=== PATIENT | female | born 1970 | race Caucasian/White ===

== ENCOUNTER → 2018-05-08 10:27 | Outpatient (CLI) | payer BC, SELFPAY ==
--- NOTE | 2018-05-08 10:44 | CT_ITS ---
STUDY: CT ABDOMEN AND PELVIS WITHOUT CONTRAST REASON FOR EXAM: Female, 47 years old. Bilateral flank pain. RADIATION DOSAGE (If Supplied By Facility): CTDIvol = ( 13.21 ) mGy, DLP = ( 709.76 ) mGycm TECHNIQUE: Transaxial images were obtained from the dome of the diaphragm to the symphysis pubis without oral contrast, and without intravenous contrast. Sagittal and coronal images were reconstructed. Individualized dose optimization techniques were used for this CT. COMPARISON: None. FINDINGS: The visualized lung bases are unremarkable. The visualized portions of the heart are within normal limits. Normal liver. There are surgical clips in the gallbladder fossa consistent with a prior cholecystectomy. Normal spleen. Normal pancreas. Normal bilateral adrenal glands. Normal right kidney. Normal left kidney. There is a small hiatal hernia. Normal small intestine. There are scattered colonic diverticula consistent with diverticulosis. The appendix is visualized and appears normal. Normal abdominal aorta. Normal inferior vena cava. Normal retroperitoneum. Normal urinary bladder. There is a 1.4 cm x 1.6 cm follicle in the left ovary. Normal abdominal wall. Normal osseous structures. CT/Abdomen/Pelvis without Cont IMPRESSION: Scattered sigmoid diverticula. Dominant follicle in the left ovary. Electronically Signed: Macario Sanchez MD at 11:14 EST Tel [phone], Service support ,
[2018-05-08 11:03] LABS: Albumin, Serum 3.7 g/dL (3.2-5.0); BUN 13 mg/dL (7-18); Calcium,Total 8.6 mg/dL (8.5-10.1); Chloride 105 mmol/L (98-107); Creatinine, Serum 0.72 mg/dL (0.55-1.02); EST Glomerular Filtration Rate 92 mL/min (>60); Est Glom Filt Rate - Afr Amer 112 mL/min (>60); Glucose 103 mg/dL (74-106); Phosphorus 3.1 mg/dL (2.5-4.9); Potassium 4.2 mmol/L (3.5-5.1); Sodium Level 141 mmol/L (136-145)
--- OUTSIDE RECORDS SUMMARY | 2018-07-03 06:35 | XMS RPT_ITS | Continuity of Care Document ---
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 Systolic 118 mm[Hg] Comments: Patient Position: Sitting; Cuff Location: Left Arm; Cuff Size: Standard BP Diastolic 80 mm[Hg] Comments: Patient Position: Sitting; Cuff Location: Left Arm; Cuff Size: Standard Weight 205.25 lb Height 64 in Body Mass Index Calculated 35.23 kg/m2 Body Surface Area Calculated 1.98 m2 :28 Pulse 89 /min Comments: Pattern: Regular Respiration Rate 16 /min Comments: Pattern: Unlabored O2 SAT 100 % Comments: Room air BP Systolic 130 mm[Hg] Comments: Patient Position: Sitting; Cuff Location: Left Arm; Cuff Size: Standard BP Diastolic 80 mm[Hg] Comments: Patient Position: Sitting; Cuff Location: Left Arm; Cuff Size: Standard Weight 207.25 lb Height 64 in Body Mass Index Calculated 35.57 kg/m2 Body Surface Area Calculated 1.99 m2 :37 Temperature 97.6 f Comments: Method: Temporal Pulse 87 /min Comments: Pattern: Regular Respiration Rate 18 /min Comments: Pattern: Unlabored O2 SAT 98 % Comments: Room air BP Systolic 124 mm[Hg] Comments: Patient Position: Sitting; Cuff Location: Left Arm; Cuff Size: Large BP Diastolic 74 mm[Hg] Comments: Patient Position: Sitting; Cuff Location: Left Arm; Cuff Size: Large Weight 208.25 lb Height 64 in Body Mass Index Calculated 35.75 kg/m2 Body Surface Area Calculated 1.99 m2 :50 Pulse 73 /min Comments: Pattern: Regular Respiration Rate 18 /min Comments: Pattern: Unlabored O2 SAT 97 % Comments: Room air BP Systolic 120 mm[Hg] Comments: Patient Position: Sitting; Cuff Location: Left Arm; Cuff Size: Large BP Diastolic 82 mm[Hg] Comments: Patient Position: Sitting; Cuff Location: Left Arm; Cuff Size: Large Weight 205.125 lb Height 64 in Body Mass Index Calculated 35.21 kg/m2 Body Surface Area Calculated 1.98 m2 :12 Pulse 82 /min Comments: Pattern: Regular Respiration Rate 18 /min Comments: Pattern: Unlabored O2 SAT 98 % Comments: Room air BP Systolic 122 mm[Hg] Comments: Patient Position: Sitting; Cuff Location: Left Arm; Cuff Size: Large BP Diastolic 80 mm[Hg] Comments: Patient Position: Sitting; Cuff Location: Left Arm; Cuff Size: Large Weight 193.375 lb Height 64 in Body Mass Index Calculated 33.19 kg/m2 Body Surface Area Calculated 1.93 m2 :25 Temperature 97.6 f Pulse 69 /min Comments: Pattern: Regular Respiration Rate 16 /min Comments: Pattern: Unlabored O2 SAT 98 % Comments: Room air BP Systolic 122 mm[Hg] Comments: Patient Position: Sitting; Cuff Location: Left Arm; Cuff Size: Standard BP Diastolic 80 mm[Hg] Comments: Patient Position: Sitting; Cuff Location: Left Arm; Cuff Size: Standard Weight 193.375 lb Height 64 in Body Mass Index Calculated 33.19 kg/m2 Body Surface Area Calculated 1.93 m2 :07 Pulse 96 /min Comments: Pattern: Regular Respiration Rate 18 /min Comments: Pattern: Unlabored O2 SAT 96 % Comments: Room air BP Systolic 142 mm[Hg] Comments: Patient Position: Sitting; Cuff Location: Left Arm; Cuff Size: Large BP Diastolic 90 mm[Hg] Comments: Patient Position: Sitting; Cuff Location: Left Arm; Cuff Size: Large Weight 193.375 lb Height 64 in Body Mass Index Calculated 33.19 kg/m2 Body Surface Area Calculated 1.93 m2 :34 Pulse 89 /min Comments: Pattern: Regular Respiration Rate 18 /min Comments: Pattern: Unlabored O2 SAT 98 % Comments: Room air BP Systolic 118 mm[Hg] Comments: Patient Position: Sitting; Cuff Location: Left Arm; Cuff Size: Large BP Diastolic 78 mm[Hg] Comments: Patient Position: Sitting; Cuff Location: Left Arm; Cuff Size: Large Weight 193.375 lb Height 64 in Body Mass Index Calculated 33.19 kg/m2 Body Surface Area Calculated 1.93 m2 :45 Respiration Rate 18 /min Comments: Pattern: Unlabored BP Systolic 124 mm[Hg] Comments: Patient Position: Sitting; Cuff Location: Left Arm; Cuff Size: Standard BP Diastolic 78 mm[Hg] Comments: Patient Position: Sitting; Cuff Location: Left Arm; Cuff Size: Standard Weight 189.375 lb Height 64 in Body Mass Index Calculated 32.51 kg/m2 Body Surface Area Calculated 1.91 m2 :31 Temperature 97.2 f Pulse 61 /min Comments: Pattern: Regular Respiration Rate 16 /min Comments: Pattern: Unlabored O2 SAT 98 % Comments: Room air BP Systolic 118 mm[Hg] Comments: Patient Position: Sitting; Cuff Location: Left Arm; Cuff Size: Standard BP Diastolic 78 mm[Hg] Comments: Patient Position: Sitting; Cuff Location: Left Arm; Cuff Size: Standard Weight 192.375 lb Height 64 in Body Mass Index Calculated 33.02 kg/m2 Body Surface Area Calculated 1.92 m2 :37 Temperature 97.6 f Comments: Method: Temporal Pulse 80 /min Comments: Pattern: Regular Respiration Rate 18 /min Comments: Pattern: Unlabored O2 SAT 97 % Comments: Room air BP Systolic 120 mm[Hg] Comments: Patient Position: Sitting; Cuff Location: Left Arm; Cuff Size: Large BP Diastolic 78 mm[Hg] Comments: Patient Position: Sitting; Cuff Location: Left Arm; Cuff Size: Large Weight 195 lb Height 64 in Body Mass Index Calculated 33.47 kg/m2 Body Surface Area Calculated 1.94 m2 :53 Temperature 97.6 f Comments: Method: Temporal Pulse 72 /min Comments: Pattern: Regular Respiration Rate 18 /min Comments: Pattern: Unlabored O2 SAT 97 % Comments: Room air BP Systolic 116 mm[Hg] Comments: Patient Position: Sitting; Cuff Location: Left Arm; Cuff Size: Large BP Diastolic 76 mm[Hg] Comments: Patient Position: Sitting; Cuff Location: Left Arm; Cuff Size: Large Weight 198 lb Height 64 in Body Mass Index Calculated 33.99 kg/m2 Body Surface Area Calculated 1.95 m2 :16 Temperature 97.7 f Comments: Method: Temporal Pulse 78 /min Comments: Pattern: Regular Respiration Rate 20 /min Comments: Pattern: Unlabored BP Systolic 120 mm[Hg] Comments: Patient Position: Sitting; Cuff Location: Left Arm; Cuff Size: Large BP Diastolic 82 mm[Hg] Comments: Patient Position: Sitting; Cuff Location: Left Arm; Cuff Size: Large Weight 194 lb Height 64 in Body Mass Index Calculated 33.3 kg/m2 Body Surface Area Calculated 1.93 m2 :51 Temperature 97.1 f Comments: Method: Temporal Pulse 74 /min Comments: Pattern: Regular Respiration Rate 20 /min Comments: Pattern: Unlabored BP Systolic 120 mm[Hg] Comments: Patient Position: Sitting; Cuff Location: Left Arm; Cuff Size: Standard BP Diastolic 78 mm[Hg] Comments: Patient Position: Sitting; Cuff Location: Left Arm; Cuff Size: Standard Weight 194 lb Height 64 in Body Mass Index Calculated 33.3 kg/m2 Body Surface Area Calculated 1.93 m2 [id number]-[id number]:00 Temperature 98 f Comments: Method: Tympanic Pulse 91 /min Comments: Pattern: Regular Respiration Rate 16 /min Comments: Pattern: Unlabored O2 SAT 98 % Comments: Room air BP Systolic 122 mm[Hg] Comments: Patient Position: Sitting; Cuff Location: Left Arm; Cuff Size: Standard BP Diastolic 78 mm[Hg] Comments: Patient Position: Sitting; Cuff Location: Left Arm; Cuff Size: Standard Weight 198.1875 lb Height 64 in Body Mass Index Calculated 34.02 kg/m2 Body Surface Area Calculated 1.95 m2 20-Uxp-426582:11 Pulse 80 /min Comments: Pattern: Regular Respiration Rate 20 /min Comments: Pattern: Unlabored O2 SAT 98 % Comments: Room air BP Systolic 128 mm[Hg] Comments: Patient Position: Sitting; Cuff Location: Left Arm; Cuff Size: Standard BP Diastolic 82 mm[Hg] Comments: Patient Position: Sitting; Cuff Location: Left Arm; Cuff Size: Standard Weight 202.1875 lb Height 64 in Body Mass Index Calculated 34.71 kg/m2 Body Surface Area Calculated 1.97 m2 :14 Temperature 97.9 f Comments: Method: Temporal Pulse 76 /min Comments: Pattern: Regular Respiration Rate 20 /min Comments: Pattern: Unlabored BP Systolic 120 mm[Hg] Comments: Patient Position: Sitting; Cuff Location: Left Arm; Cuff Size: Standard BP Diastolic 78 mm[Hg] Comments: Patient Position: Sitting; Cuff Location: Left Arm; Cuff Size: Standard Weight 199 lb Height 64 in Body Mass Index Calculated 34.16 kg/m2 Body Surface Area Calculated 1.95 m2 :12 Temperature 96.6 f Comments: Method: Temporal Pulse 76 /min Comments: Pattern: Regular Respiration Rate 16 /min Comments: Pattern: Unlabored O2 SAT 95 % Comments: Room air BP Systolic 122 mm[Hg] Comments: Patient Position: Sitting; Cuff Location: Left Arm; Cuff Size: Standard BP Diastolic 74 mm[Hg] Comments: Patient Position: Sitting; Cuff Location: Left Arm; Cuff Size: Standard Weight 213 lb Height 64 in Body Mass Index Calculated 36.56 kg/m2 Body Surface Area Calculated 2.01 m2 : Temperature 97.6 f Comments: Method: Oral Pulse 74 /min Comments: Pattern: Regular Respiration Rate 18 /min Comments: Pattern: Unlabored BP Systolic 120 mm[Hg] Comments: Patient Position: Sitting; Cuff Location: Left Arm; Cuff Size: Standard BP Diastolic 78 mm[Hg] Comments: Patient Position: Sitting; Cuff Location: Left Arm; Cuff Size: Standard Weight 213 lb Height 64 in Body Mass Index Calculated 36.56 kg/m2 Body Surface Area Calculated 2.01 m2 :27 Temperature 96.6 f Comments: Method: Temporal Pulse 76 /min Comments: Pattern: Regular Respiration Rate 16 /min Comments: Pattern: Unlabored BP Systolic 122 mm[Hg] Comments: Patient Position: Sitting; Cuff Location: Left Arm; Cuff Size: Standard BP Diastolic 78 mm[Hg] Comments: Patient Position: Sitting; Cuff Location: Left Arm; Cuff Size: Standard Weight 216 lb Height 64 in Body Mass Index Calculated 37.08 kg/m2 Body Surface Area Calculated 2.02 m2 : Temperature 97.8 f Comments: Method: Oral Pulse 70 /min Comments: Pattern: Regular Respiration Rate 18 /min Comments: Pattern: Unlabored BP Systolic 120 mm[Hg] Comments: Patient Position: Sitting; Cuff Location: Left Arm; Cuff Size: Standard BP Diastolic 78 mm[Hg] Comments: Patient Position: Sitting; Cuff Location: Left Arm; Cuff Size: Standard Weight 205 lb Height 64 in Body Mass Index Calculated 35.19 kg/m2 Body Surface Area Calculated 1.98 m2 :28 Pulse 76 /min Comments: Pattern: Regular Respiration Rate 18 /min Comments: Pattern: Unlabored BP Systolic 120 mm[Hg] Comments: Patient Position: Sitting; Cuff Location: Left Arm; Cuff Size: Large BP Diastolic 78 mm[Hg] Comments: Patient Position: Sitting; Cuff Location: Left Arm; Cuff Size: Large Weight 205 lb Height 64 in Body Mass Index Calculated 35.19 kg/m2 Body Surface Area Calculated 1.98 m2 :21 Temperature 98 f Comments: Method: Oral Pulse 70 /min Comments: Pattern: Regular Respiration Rate 20 /min Comments: Pattern: Unlabored BP Systolic 116 mm[Hg] Comments: Patient Position: Sitting; Cuff Location: Left Arm; Cuff Size: Standard BP Diastolic 76 mm[Hg] Comments: Patient Position: Sitting; Cuff Location: Left Arm; Cuff Size: Standard Weight 198 lb Height 64 in Body Mass Index Calculated 33.99 kg/m2 Body Surface Area Calculated 1.95 m2 :03 Temperature 98 f Comments: Method: Oral Pulse 68 /min Comments: Pattern: Regular Respiration Rate 18 /min Comments: Pattern: Unlabored BP Systolic 114 mm[Hg] Comments: Patient Position: Sitting; Cuff Location: Left Arm; Cuff Size: Large BP Diastolic 72 mm[Hg] Comments: Patient Position: Sitting; Cuff Location: Left Arm; Cuff Size: Large Weight 207 lb Height 64 in Body Mass Index Calculated 35.53 kg/m2 Body Surface Area Calculated 1.98 m2 :12 Temperature 97.6 f Comments: Method: Oral Pulse 68 /min Comments: Pattern: Regular Respiration Rate 18 /min Comments: Pattern: Unlabored BP Systolic 100 mm[Hg] Comments: Patient Position: Sitting; Cuff Location: Left Arm; Cuff Size: Standard BP Diastolic 70 mm[Hg] Comments: Patient Position: Sitting; Cuff Location: Left Arm; Cuff Size: Standard Weight 213 lb Height 64 in Body Mass Index Calculated 36.56 kg/m2 Body Surface Area Calculated 2.01 m2 :02 Temperature 97.6 f Comments: Method: Oral Pulse 72 /min Comments: Pattern: Regular Respiration Rate 16 /min Comments: Pattern: Unlabored BP Systolic 120 mm[Hg] Comments: Patient Position: Supine; Cuff Location: Left Arm; Cuff Size: Standard BP Diastolic 70 mm[Hg] Comments: Patient Position: Supine; Cuff Location: Left Arm; Cuff Size: Standard Weight 160.25 lb Height 64 in Body Mass Index Calculated 27.51 kg/m2 Body Surface Area Calculated 1.78 m2 :01 Temperature 97.5 f Comments: Method: Oral Pulse 70 /min Comments: Pattern: Regular Respiration Rate 16 /min Comments: Pattern: Unlabored BP Systolic 128 mm[Hg] Comments: Patient Position: Sitting; Cuff Location: Left Arm; Cuff Size: Standard BP Diastolic 70 mm[Hg] Comments: Patient Position: Sitting; Cuff Location: Left Arm; Cuff Size: Standard Weight 160.25 lb :46 Temperature 96.7 f Comments: Method: Oral Pulse 68 /min Comments: Pattern: Regular Respiration Rate 16 /min Comments: Pattern: Unlabored BP Systolic 120 mm[Hg] Comments: Patient Position: Sitting; Cuff Location: Left Arm; Cuff Size: Standard BP Diastolic 70 mm[Hg] Comments: Patient Position: Sitting; Cuff Location: Left Arm; Cuff Size: Standard Weight 160.25 lb :36 Pulse 66 /min Comments: Pattern: Regular Respiration Rate 16 /min Comments: Pattern: Unlabored BP Systolic 116 mm[Hg] Comments: Patient Position: Supine; Cuff Location: Left Arm; Cuff Size: Standard BP Diastolic 72 mm[Hg] Comments: Patient Position: Supine; Cuff Location: Left Arm; Cuff Size: Standard Weight 171.375 lb Height 63 in Body Mass Index Calculated 30.36 kg/m2 Body Surface Area Calculated 1.81 m2 Head Circumference 0.00 cm :16 Pulse 68 /min Comments: Pattern: Regular Respiration Rate 16 /min Comments: Pattern: Unlabored BP Systolic 118 mm[Hg] Comments: Patient Position: Sitting; Cuff Location: Left Arm; Cuff Size: Standard BP Diastolic 78 mm[Hg] Comments: Patient Position: Sitting; Cuff Location: Left Arm; Cuff Size: Standard Weight 177 lb Height 63 in Body Mass Index Calculated 31.35 kg/m2 Body Surface Area Calculated 1.84 m2 Head Circumference 0.00 cm :00 Temperature 98.2 f Comments: Method: Oral Pulse 70 /min Comments: Pattern: Regular Respiration Rate 16 /min Comments: Pattern: Unlabored BP Systolic 116 mm[Hg] Comments: Patient Position: Sitting; Cuff Location: Left Arm; Cuff Size: Standard BP Diastolic 72 mm[Hg] Comments: Patient Position: Sitting; Cuff Location: Left Arm; Cuff Size: Standard Weight 184 lb Height 63.75 in Body Mass Index Calculated 31.83 kg/m2 Body Surface Area Calculated 1.88 m2 Head Circumference 0.00 cm Results Date Description Value Details :58 Urinalysis, Office (37651) UA - LEUKOCYTE ESTERASE Moderate (Normal) UA - NITRITE Negative (Normal) URINE UROBILINGN ALEXANDER TIMED Normal mg/dL (Normal) UA - PROTEIN + mg/dL (Abnormal) UA - PH 6 (Abnormal) UA - BLOOD ++ (Abnormal) UA - SPECIFIC GRAVITY 1.030 (Abnormal) UA - KETONES Negative mg/dL (Normal) UA - BILIRUBIN Negative (Normal) UA - GLUCOSE Negative (Normal) 5-Xsu-803537:44 REVERSE TRIDOTHYRONINE Comments: PATIENT NOT FASTINGPERFORMED BY: [employer] [id number] BY: [address] [id number] ([id number]) Reverse T3, Serum 17.6 ng/dL (Normal) Range: 9.2-24.1 2-Das-328546:44 Anti-TPO Antibody (30501) Comments: PATIENT NOT FASTINGPERFORMED BY: [employer] [id number] BY: [address] [id number] Thyroid Peroxidase (TPO) Ab 13 {IU/mL} (Normal) Range: 0-34 4-Hfc-994403:44 TSH (93833) Comments: PATIENT NOT FASTINGPERFORMED BY: [employer] [id number] BY: [address] [id number] TSH 1.390 {uIU/mL} (Normal) Range: 0.450-4.500 1-Glf-845405:44 T4, FREE (THYROXINE) Comments: PATIENT NOT FASTINGPERFORMED BY: [employer] [id number] BY: [address] [id number] ([id number]) T4,Free(Direct) 1.02 ng/dL (Normal) Range: 0.82-1.77 1-Hzc-357964:44 T3, FREE (TRIDOTHYRONINE) Comments: PATIENT NOT FASTINGPERFORMED BY: [address] [id number] BY: [address] [id number] (08923) Triiodothyronine,Free,Serum 3.2 pg/mL (Normal) Range: 2.0-4.4 31-Cau-114668:13 Cortisol (46243) Comments: PATIENT NOT FASTINGPERFORMED BY: [address] [id number] Cortisol 10.4 ug/dL (Normal) Range: 2.3-19.4 Comments: Cortisol AM 6.2 - 19.4 Cortisol PM 2.3 - 11.9 27-Cko-188886:13 TSH (THYROID STIMULATING Comments: PATIENT NOT FASTINGPERFORMED BY: [address] [id number] Information: [id number] HORMONE) (81679) TSH 1.820 {uIU/mL} (Normal) Range: 0.450-4.500 28-Jiv-20352:21 Urinalysis, Office (49477) UA - LEUKOCYTE ESTERASE Negative (Normal) UA - NITRITE Negative (Normal) URINE UROBILINGN ALEXANDER TIMED 2 mg/dL (Normal) UA - PROTEIN Negative mg/dL (Normal) UA - PH 7.0 (Normal) UA - BLOOD Negative (Normal) UA - SPECIFIC GRAVITY 1.010 (Normal) UA - KETONES Negative mg/dL (Normal) UA - BILIRUBIN Negative (Normal) UA - GLUCOSE Negative (Normal) 13-Rww-199075:14 Throat Culture (26523) Comments: PATIENT NOT FASTINGPERFORMED BY: [address] [id number] Information: SRC:THRT ADD [id number] Result 1 RRF (Normal) Comments: Routine respiratory skylar Upper Respiratory Culture Final report (Normal) 41-Zqy-596969:14 Rapid Strep Test, Office (85027) Rapid Strep Test, Office Negative (Normal) 94-Ras-545431:38 Poliovirus Immune Status Comments: PATIENT NOT FASTINGPERFORMED BY: [address] [id number] BY: [facility] [facility] [id number] Poliovirus Type III >=1:8 (Normal) Comments: .This test was developed and its performance characteristics determinedby [employer]. It has not been cleared or approved by [facility] Food and Drug Administration. The FDA has deter mined that s uchclearance or approval is not necessary. This test is used for clinicalpurposes. It should not be regarded as investigational or research. Poliovirus Type II <1:8 (Normal) Comments: .This test was developed and its performance characteristics determinedby [employer]. It has not been cleared or approved by [facility] Food and Drug Administration. The FDA has deter mined that s uchclearance or approval is not necessary. This test is used for clinicalpurposes. It should not be regarded as investigational or research. Poliovirus Type I <1:8 (Normal) Comments: .This test was developed and its performance characteristics determinedby [employer]. It has not been cleared or approved by [facility] Food and Drug Administration. The FDA has deter mined that s uchclearance or approval is not necessary. This test is used for clinicalpurposes. It should not be regarded as investigational or research. 68-Yxb-411173:38 MUMPS ANTIBODY, IgG 44855 Comments: PATIENT NOT FASTINGPERFORMED BY: [facility] [employer] Buwjiiujoq4128 [facility] [id number] BY: [employer] Acvjws76[address] [facility] [id number] (21553) Mumps Abs, IgG 1.56 {index} (Abnormal) Range: 0.00-0.90 Comments: Negative <0.91 Equivocal 0.91 - 1.09 Positive >1.09 Presence of antibodie s to Mumps is presumptive evidence of immunity except when active infection is suspected. 7-Jwl-868260:59 THYROID Radiology Report See Note (Normal) Comments: PROCEDURE: THYROID ULTRASOUND REASON FOR EXAM: Female, 41 years old. Goiterous enlargement of thethyroid. TECHNIQUE: Ultrasound evaluation of the thyroid was performed withreal-time a nd static gr ay-scale imaging. COMPARISON: None. FINDINGS: RIGHT LOBE: The right lobe of the thyroid gland measures 4.7 cm x 1.7 cmby 1.3 cm. There is a homogeneous echotexture. There are nodemonstratedsolid, cystic or complex lesions. LEFT LOBE: The left lobe of the thyroid gland measures 4.6 cm x 1.4 cmby1.3 cm. There is a homogeneous echotexture. There is a 3.0 millimeterby3 mm x 2 mm cyst in the mid l eft lobe. ISTHMUS: The isthmus measures 2.0 mm. IMPRESSION:2 mm x 3 mm x 3 mm cyst in the left lobe of the thyroid. Signed:Macario Sanchez M.D.September 14, 2012 at 4:08:36 PM [phone] lly Signed GP/GP If you are the referring physician and would like to consult with theradiologist who provided this interpretation, please contact [place] at [phone]. If this radiol ogist is unavailable, youwill be directed to another radiologist to assist. If you are a patient with a question regarding this report, pleasecontactyour referring physician directly. Professional Inter pretation Provided By: [employer], Phone , These documents contain legally protected and confidential healthinformation intended only for the use of the individual or enti ty namedabove. If you are not the intended recipient, you are hereby notifiedthatany disclosure, copying, distribution, or other use of these documents isstrictly prohibited. If you have received this i nformation in error,pleasenotify the sender immediately and arrange for the return or destructionofthese documents. Dictated on 09/14/12 1340 by Clara Sanchez MDranscribed on 09/14/12 1636 by Alan AVINA IMPORTSign by Macario Sanchez MD on 09/14/12 1637 Sign by: Macario Sanchez MD FT3 3.5 pg/mL (Normal) Range: 2.18-3.98 :10 T4F 0.90 ng/dL Range: 0.76-1.46 :10 (Normal) TSH 1.41 {uIU/mL} Range: 0.358-3.74 :10 (Normal) :39 HIP, MIN 2 VIEWS Radiology Report See Note (Normal) Comments: PROCEDURE: X-RAY - LEFT HIP REASON FOR EXAM: Female, 40 years old. Joint pain. TECHNIQUE: Two views of the hip. COMPARISON: None. FINDINGS: Normal femoral head, neck, intertrochante tobi region a nd visualizedproximalfemur. Normal acetabulum. Normal hip joint. Normal visualized superior and inferior pubic rami and ischialtuberosities. IMPRESSION:Normal x-ray examination of the hip. To consult with a radiologist regarding this report, please call our [id number] line @ Dictated on 09/12/11 1233 by Gigi Gallagher DObed on 09/12/111436 by ITS IMPORTSign by Jovanny Gallagher DO on 09/12/11 1438 Sign by: Conrad Gallagher DO :39 HIP, MIN 2 VIEWS Radiology Report See Note (Normal) Comments: PROCEDURE: X-RAY - RIGHT HIP REASON FOR EXAM: Female, 40 years old. Joint pain TECHNIQUE: Two views of the hip. COMPARISON: None. FINDINGS: Normal femoral head, neck, intertrochante tobi region a nd visualizedproximalfemur. Normal acetabulum. Normal hip joint. Normal visualized superior and inferior pubic rami and ischialtuberosities. IMPRESSION:Normal x-ray examination of the hip. To consult with a radiologist regarding this report, please call our [id number] line @ Dictated on 09/12/11 1233 by Gigi Gallagher DObed on 09/12/11 1440 by ITS IMPORTSign by Jovanny Gallagher DO on 09/12/11 1441 Sign by: Conrad Gallagher DO CCP Antibodies 2 {units} (Normal) Comments: PATIENT NOT FASTINGPERFORMED BY: [facility] Re[address]qqa[address] [facility] [id number] BY: [facility] [id number] 2:15 IgG/IgA Range: 0-19 Comments: Negative <20 Weak positive 20 - 39 Moderate positive 40 - 59 Strong positive >59 6-Vtg-594057:15 RHEUMATOID FACTOR-QUANT Comments: PATIENT NOT FASTINGPERFORMED BY: [address] [id number] BY: [address] [id number] (47723) RA Latex Turbid. 7.4 {IU/mL} (Normal) Range: 0.0-13.9 2-Avd-310147:15 CALCIFIDIOL (98800) VIT D Comments: PATIENT NOT FASTINGPERFORMED BY: [place] [id number] [facility] [id number] BY: [address] [id number] Vitamin D, 25-Hydroxy 30.8 ng/mL (Normal) Range: 30.0-100.0 Comments: Vitamin D deficiency has been defined by the [place] ofMedicine and an Endocrine Society practice guideline as alevel of serum 25-OH vitamin D less than 20 ng/mL (1,2).The Endocrine Society went on to further define vitamin Dinsufficiency as a level between 21 and 29 ng/mL (2).1. IOM ([place] of [employer]). 2010. Dietary reference intakes for calcium and D. [place]: The National Academies Press.2. Nai MF, Jordan VELASCO, Pricila DONALD, et al. Evaluation, treatment, and prevention of vitamin D deficiency: an Endocrine Society clinical practice guideline. JCEM. 2010; 96(7):1911-30. 8-Thf-346991:15 Folate (36049) Comments: PATIENT NOT FASTINGPERFORMED BY: [address] [id number] BY: [address] [id number] Folate (Folic Acid), Serum >19.9 ng/mL (Normal) Comments: Indeterminate: 2.2 - 3.0 Deficient: <2.2 2-Wju-[id number]:15 VITAMIN B-12 (CYANOCOBALAMIN) Comments: PATIENT NOT FASTINGPERFORMED BY: LabSilverBack TechnologiesSouthern Ocean Medical CenterYnwweo5408 [facility] [id number] BY: [address] [id number] ([id number]) Vitamin B12 746 pg/mL (Normal) Range: 211-946 5-Xuj-476850:15 TSH ([id number]) Comments: PATIENT NOT FASTINGPERFORMED BY: [facility] [id number] [facility] [id number] BY: [address] [id number] TSH 1.850 {uIU/mL} (Normal) Range: 0.450-4.500 1-Cuj-511420:15 SED RATE ERYTHROCYTE Comments: PATIENT NOT FASTINGPERFORMED BY: LabSilverBack TechnologiesNorthern Navajo Medical CenterVrfnnb9362 [facility] [id number] BY: [address] [id number] ([id number]) Sedimentation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
--- OUTSIDE RECORDS SUMMARY | 2018-07-03 06:36 | XMS RPT_ITS | Continuity of Care Document ---
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 cook at home. Status: Active Plantar fasciitis (M72.2, 728.71) Comments: [...] Active Tooth infection (K04.7, 522.4) Status: Active Weight gain (R63.5, 783.1) Status: [...] DO, DO, Kathleen Start : 04-Aug-2017 Active Clindamycin HCl 300 MG Oral Capsule 1 (one) Capsule three times daily for 7 days Quantity: 21 {Capsule} Refills: 0 Ordered:08-Apr-2018 Sharon Buck Start : 08-Apr-2018 Active Diflucan 150 MG Oral Tablet 1 (one) Tablet today and can repeat in 2 days if needed for 0 days Quantity: 2 {Tablet} Refills: 0 Ordered:23-Jan-2018 Nikky CASTRO Neli Start : 23-Jan-2018 Active Diflucan 150 MG Oral Tablet 1 (one) Tablet one time dose for 1 days Quantity: 1 {Tablet} Refills: 3 Ordered:28-May-2017 Idalia Willis Start : 28-May-2017 Active Maxalt-TRAM OPERATOR 10 MG Oral Tablet Dispersible uad Tablet Disperse 1 at onset, then may repeat in 2 hours if not gone for 0 days Quantity: 36 {Tablet} Refills: 3 Ordered:05-Aug-2016 Andrzej Adorno DO, DO, Kathleen Start : 05-Aug-2016 Active Comments:Max (2) in 24 hours Maxalt-TRAM OPERATOR 10 MG Oral Tablet Dispersible uad Tablet [...] Quantity: 20 {Tablet} Refills: 0 Ordered:23-Jan-2018 Ricarda Sehr CNP Start : 23-Jan-2018 End : 02-Feb-2018 Inactive CYMBALTA, 30MG (Oral Capsule Delayed Release Particles) [address] Part daily for 0 days Quantity: 14 {Capsule_DR_Part} Refills: 0 Ordered:21-Dec-2012 BETTY Werner Start : 23-Nov-2012 End : 21-Dec-2012 Inactive DOXYCYCLINE HYCLATE, 100MG (Oral Tablet) 1 Tablet bid for 14 days Quantity: 28 {Tablet} Refills: 0 Ordered:11-Dec-2012 Mary Washington MD Start : 23-Nov-2012 End : 07-Dec-2012 Inactive Comments:called to [facility] ER 400 MG Oral Tablet Extended Release [...] days Quantity: 3 {Tablet} Refills: 0 Ordered:19-Nov-2016 Allison Vergara Start : 16-Oct-2016 End : 19-Nov-2016 Inactive [...] for 0 days Refills: 0 Ordered:30-Dec-2013 BETTY Werner Start : 02-Feb-2013 End : 30-Dec-2013 Inactive [...] Emilia Santana LPN End : 12-Sep-2011 Inactive SAVELLA TITRATION PACK, 12.5 & 25 & 50MG (Oral Miscellaneous) 1 Misc uad for 0 days Quantity: 1 {Package(s)} Refills: 0 Ordered:11-Sep-2012 Emilia Santana LPN Start : 18-Jun-2012 End : 11-Sep-2012 Inactive [...] : 12-Sep-2011 Discontinued Comments:This order discontinued per -Span. Allergies and Adverse Reactions Name Dates Details [...] Removal) Completed Comments: 1996 Tonsillectomy Completed Comments: 7/28/09 Date Value Details 13-May-2016 Spine Lumbar (Routine) Result: Comments: See Note; NOTES: [facility] Imaging Services [address] [place] [address] Montezdagomez 4d Spine Lumbar (Routine) MR#: [id number] Acct: [id number] Name: LACEY MACIAS p #: [id number] : 1970 F 45 From: Pierre Rebollar MD PCP: Kellen Adorno DO Status: REG CLI Study: Spine Lumbar (Routine) Date of Exam: 05/13/16 Exam# [id number] Ordering Dr: Ricarda Sher STUDY : MRI [...] MD at 21:54 EST , Service support [phone], CC: Ricarda hSer; Kellen Adorno DO Firefighter Marine: Signed 09-Apr-2016 Re-Evaluation - PT (1) Result: Comments: See Note; NOTES: [facility] [address] [place] [address] Fax REEVALUATION / MEDICARE RECERT IFICATION Ono 4d PHYSICAL THERAPY MR#: [id number] Acct: [id number] Name: LACEY MACIAS Rep #: [id number] : 1970 45 From: Soniya Fernandez PT, Cert. MDT Referring DrKang: Kellen Adorno DO Statu s: [...] Please do not hesitate to contact me a t [phone] by phone or if you have questions or concerns regarding this new plan of care! Sincerely, Soniya Fernandez <Electronically signed by Soniya Fernandez PT, Cert. MDT& amp;#62; 04/09/16 1006 CC: Kellen Adorno DO GINA Signed For Medicare only, by signing this I certify the plan of care. Physicians Signature Date 09-Feb-2016 Inital Evaluation (1) - PT Result: Comments: See Note; NOTES: [facility] [address] [place] [address] Fax [facility] [facility] EVALUATION MR#: [id number] Acct: [id number] Name: LACEY MACIAS Rep #: [id number] : 1970 45 From: Soniya Fernandez PT, Cert. 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 CURRENTLY NOT OFF WORK. Disability: NO. Present [...] treatment: CHIROPRACTOR SINCE ABOUT AGE 14 STAR MEAGANG WITH ADJUSTMENTS FOR PREVENTION. TREATMENT WITH CHIROPRACTOR OF THE YEARS FOR MIGRAIN DONALD'S. LAST CHIROPRACTIC VISIT WAS ABOUT 6 MONTHS AGO. USUALLY GOES ABOUT 3-4 TIMES A YEAR. 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 Coughing/sneezing/straining: POSITIVE. DIFFICULTY SWALLOWING - NEGATIVE. DIZZINESS [...] to be FAXED BACK to us at [phone] for Medicare purposes. Please let me know if there are questions or concerns regarding this plan of care. Physician Signature: Date: <Electronically signed by Elsy Fernandez PT, Cert. 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 Exercise History Comments: Light Status: Active Living Situation Comments: , Lives with spouse Status: Active No Drug Use Status: Active Non Smoker/No Tobacco Use Comments: never smoker Status: Active Vital Signs Date Test Result Details :52 Temperature 96.8 f Comments: Method: Temporal [...] kg/m2 Body Surface Area Calculated 1.93 m2 :00 Temperature 98 f Comments: Method: Tympanic Pulse [...] kg/m2 Body Surface Area Calculated 1.95 m2 :11 Pulse 80 /min Comments: Pattern: Regular Respiration [...] kg/m2 Body Surface Area Calculated 2.01 m2 :20 Temperature 97.6 f Comments: Method: Oral Pulse [...] kg/m2 Body Surface Area Calculated 2.02 m2 :01 Temperature 97.8 f Comments: Method: Oral Pulse [...] Calculated 1.84 m2 Head Circumference 0.00 cm 9-Nlf-229898:00 Temperature 98.2 f Comments: Method: Oral Pulse [...] 0.00 cm Results Date Description Value Details 2-Ocn-776808:44 REVERSE TRIDOTHYRONINE Comments: PATIENT NOT FASTINGPERFORMED BY: VoxFeedFormerly [facility] [id number] BY: Gilian TechnologiesO[place] [id number] ([id number]) Reverse T3, Serum 17.6 ng/dL (Normal) Range: 9.2-24.1 7-Kyy-477054:44 Anti-TPO Antibody (00233) Comments: PATIENT NOT FASTINGPERFORMED BY: I.[employer]ict[employer] [place] HealthYipitFormerly [facility], [facility] [id number] BY: [employer] [id number] Thyroid Peroxidase (TPO) Ab 13 {IU/mL} (Normal) Range: 0-34 6-Ymf-314581:44 TSH (16554) Comments: PATIENT NOT FASTINGPERFORMED BY: [employer]70 [facility] [id number] BY: [employer] [id number] TSH 1.390 {uIU/mL} (Normal) Range: 0.450-4.500 0-Vig-283494:44 T4, FREE (THYROXINE) Comments: PATIENT NOT FASTINGPERFORMED BY: [employer]70 [facility] [id number] BY: [place] [address]37 [facility] [id number] (87977) T4,Free(Direct) 1.02 ng/dL (Normal) Range: 0.82-1.77 5-Rbm-237607:44 T3, FREE (TRIDOTHYRONINE) Comments: PATIENT NOT FASTINGPERFORMED BY: [address] [id number] BY: [address] [id number] (50271) Triiodothyronine,Free,Serum 3.2 pg/mL (Normal) Range: 2.0-4.4 87-Ahl-340265:13 Cortisol (82167) Comments: PATIENT NOT FASTINGPERFORMED BY: [address] [id number] Cortisol 10.4 ug/dL (Normal) Range: 2.3-19.4 Comments: Cortisol AM 6.2 - 19.4 Cortisol PM 2.3 - 11.9 61-Uid-145867:13 TSH (THYROID STIMULATING Comments: PATIENT NOT FASTINGPERFORMED BY: [address] [id number] Information: [id number] HORMONE) (27278) TSH 1.820 {uIU/mL} (Normal) Range: 0.450-4.500 98-Uef-93578:21 Urinalysis, Office (21346) UA - LEUKOCYTE ESTERASE Negative (Normal) UA - NITRITE Negative (Normal) URINE UROBILINGN ALEXANDER TIMED 2 mg/dL (Normal) UA - PROTEIN Negative mg/dL (Normal) UA - PH 7.0 (Normal) UA - BLOOD Negative (Normal) UA - SPECIFIC GRAVITY 1.010 (Normal) UA - KETONES Negative mg/dL (Normal) UA - BILIRUBIN Negative (Normal) UA - GLUCOSE Negative (Normal) 69-Hbi-011184:14 Throat Culture (91158) Comments: PATIENT NOT FASTINGPERFORMED BY: [address] [id number] Information: SRC:THRT ADD [id number] Result 1 RRF (Normal) Comments: Routine respiratory skylar Upper Respiratory Culture Final report (Normal) 96-Rkj-948313:14 Rapid Strep Test, Office (12692) Rapid Strep Test, Office Negative (Normal) 09-Leu-835000:38 Poliovirus Immune Status Comments: PATIENT NOT FASTINGPERFORMED BY: [employer] [id number] BY: Gilian TechnologiesSouthern Ocean Medical CenterFzlpzr9924 [facility] [id number] Poliovirus Type III >=1:8 (Normal) Comments: .This test was developed and its performance characteristics determinedby [employer]. It has not been cleared or approved by [facility] Food and Drug Administration. The FDA has deter mined that s uchclearance or approval is not necessary. This test is used for clinicalpurposes. It should not be regarded as investigational or research. Poliovirus Type II <1:8 (Normal) Comments: .This test was developed and its performance characteristics determinedby [employer]. It has not been cleared or approved by [facility] Food and Drug Administration. The FDA has deter mined that s uchclearance or approval is not necessary. This test is used for clinicalpurposes. It should not be regarded as investigational or research. Poliovirus Type I <1:8 (Normal) Comments: .This test was developed and its performance characteristics determinedby [employer]. It has not been cleared or approved by [facility] Food and Drug Administration. The FDA has deter mined that s uchclearance or approval is not necessary. This test is used for clinicalpurposes. It should not be regarded as investigational or research. 40-Vcn-567005:38 MUMPS ANTIBODY, IgG 58466 Comments: PATIENT NOT FASTINGPERFORMED BY: [employer] [id number] BY: Gilian TechnologiesSouthern Ocean Medical CenterUemnvl6672 [facility] [id number] (67898) Mumps Abs, IgG 1.56 {index} (Abnormal) Range: 0.00-0.90 Comments: Negative <0.91 Equivocal 0.91 - 1.09 Positive >1.09 Presence of antibodie s to Mumps is presumptive evidence of immunity except when active infection is suspected. 4-Pbr-919906:59 THYROID Radiology Report See Note (Normal) Comments: [...] Sanchez M.D.September 14, 2012 at 4:08:36 PM [id number] lly Signed GP/GP If you are the referring physician and would like to consult with theradiologist who provided this interpretation, please contact [place] at [phone]. If this radiol ogist is unavailable, youwill be directed to another radiologist to assist. If you are a patient with a question regarding this report, pleasecontactyour referring physician directly. Professional Inter pretation Provided By: [employer], Phone , These documents contain legally protected [...] destructionofthese documents. Dictated on 09/14/12 1340 by Ivan Sanchez MDribed on 09/14/12 1636 by Alan AVINA IMPORTSign [...] radiologist regarding this report, please call our 32K1vqzzkse line @ Dictated on 09/12/11 1233 by Gigi Gallagher DObed on 09/12/11 1437 by ITS IMPORTSign by Jovanny Gallagher DO [...] radiologist regarding this report, please call our 87H7kluyqfn line @ Dictated on 09/12/11 1233 by Roman Gallagher DOribed on 09/12/11 1440 by ITS IMPORTSign by Jovanny Gallagher DO on 09/12/111440 Sign by: Conrad Gallagher DO CCP Antibodies 2 {units} (Normal) Comments: PATIENT NOT FASTINGPERFORMED BY: [employer] [facility] Ozsnkz2626 [facility] [id number] BY: [employer] [id number] 2:15 IgG/IgA Range: 0-19 Comments: Negative <20 Weak positive 20 - 39 Moderate positive 40 - 59 Strong positive >59 3-Jlp-834015:15 RHEUMATOID FACTOR-QUANT Comments: PATIENT NOT FASTINGPERFORMED BY: [employer] [facility] Hdrnxc4236 [facility] [id number] BY: [employer] [id number] (21172) RA Latex Turbid. 7.4 {IU/mL} (Normal) Range: 0.0-13.9 4-Wtj-157733:15 CALCIFIDIOL (37196) VIT D Comments: PATIENT NOT FASTINGPERFORMED BY: [employer] [facility] Sekxjo4220 [facility] [id number] BY: [employer] [id number] 25 Vitamin D, 25-Hydroxy 30.8 ng/mL (Normal) Range: 30.0-100.0 Comments: Vitamin D deficiency has been defined by the [place] ofMedicine and an Endocrine Society practice guideline as alevel of serum 25-OH vitamin D less than 20 ng/mL (1,2).The Endocrine Society went on to further define vitamin Dinsufficiency as a level between 21 and 29 ng/mL (2).1. IOM ([place] of Medicine). 2010. Dietary reference intakes for calcium and D. [place]: The National Academies Press.2. Nai TRINH, Jordan VELASCO, Pricila DONALD, et al. Evaluation, treatment, and prevention of vitamin D deficiency: an Endocrine Society clinical practice guideline. JCEM. 2010; 96(7):1911-30. 9-Ocd-419152:15 Folate (74408) Comments: PATIENT NOT FASTINGPERFORMED BY: CB [facility] Blynui7290 Silva RoadDublin [place] [id number] BY: [address] [id number] Folate (Folic Acid), Serum >19.9 ng/mL (Normal) Comments: Indeterminate: 2.2 - 3.0 Deficient: <2.2 7-Kau-627344:15 VITAMIN B-12 (CYANOCOBALAMIN) Comments: PATIENT NOT FASTINGPERFORMED BY: [facility] Ptaljl9750 Silva RoadDublin [place] [id number] BY: [address] [id number] (92048) Vitamin B12 746 pg/mL (Normal) Range: 211-946 8-Tvd-747968:15 TSH (91657) Comments: PATIENT NOT FASTINGPERFORMED BY: [facility] Pwqrdc3824 Silva RoadDublin [place] [id number] BY: [address] [id number] TSH 1.850 {uIU/mL} (Normal) Range: 0.450-4.500 5-Xqm-579004:15 SED RATE ERYTHROCYTE Comments: PATIENT NOT FASTINGPERFORMED BY: [facility] Dohyaw3095 Silva RoadDublin [place] [id number] BY: [address] [id number] (71753) Sedimentation Rate-Westergren 19 mm/h (Normal) Range: 0-32 8-Hiw-833685:15 METABOLIC PANEL, Comments: PATIENT NOT FASTINGPERFORMED BY: CB [facility] Nydthd8128 Silva RoadDublin [place] [id number] BY: [address] [id number] COMPREHENSIVE (48807) ALT (SGPT) 27 [iU]/L (Normal) Range: 0-40 [...] Glucose, Serum 87 mg/dL (Normal) Range: 65-99 5-Gcm-820923:15 C-REACTIVE PROTEIN (59229) Comments: PATIENT NOT FASTINGPERFORMED BY: [facility] Ibaygg9470 [facility] [id number] BY: BN [facility] Uermismbmd2261 [facility] [id number] C-Reactive Protein, Quant 14.1 mg/L (Abnormal) Range: 0.0-4.9 4-Mdk-818053:15 CBC (AUTO) (39480) Comments: PATIENT NOT FASTINGPERFORMED BY: Gilian TechnologiesColin [place] 2939370 [facility] [id number] BY: [employer] [id number] Platelets 367 {x10E3/uL} (Normal) Range: 140-415 RDW 13.8 % (Normal) Range: 11.7-15.0 MCHC 33.2 g/dL (Normal) Range: 32.0-36.0 MCH 29.1 pg (Normal) Range: 27.0-34.0 MCV 88 fL (Normal) Range: 80-98 Hematocrit 39.7 % (Normal) Range: 34.0-44.0 Hemoglobin 13.2 g/dL (Normal) Range: 11.5-15.0 RBC 4.53 {x10E6/uL} (Normal) Range: 3.80-5.10 WBC 6.8 {x10E3/uL} (Normal) Range: 4.0-10.5 5-Vvv-387798:15 PENNY (ANTINUCLEAR ANTIBODY) Comments: PATIENT NOT FASTINGPERFORMED BY: Gilian TechnologiesColin [place] 2939370 [facility] [id number] BY: [employer] [id number] (49847) PENNY Direct Negative (Normal) Plan of Care Name Dates Details Instructions Nonsmoker : Eprescribed prescriptions (G8553) Indication: Nonsmoker [...] Meridia Education Indication: Obesity, unspecified Planned Observations polio immune status antibodies 038371 (63478)Indication: School physical exam On: 96-Lka-406473:41 Request Anti-TPO Antibody (06433)Indication: Goiter On: :49 Request TSH (50622)Indication: Goiter On: 11-Sep-20129:49 Request T4, FREE (THYROXINE) (62413)Indication: Goiter On: :49 Request T3, FREE (TRIDOTHYRONINE) (33551)Indication: Goiter On: :49 Request CCP ANTIBODY (66546)Indication: Pain in unspecified joint On: 2-Zrs-746226:56 Request Planned Procedures Kenalog Injection, 10 mgm (J3301)By: On: 23-Jan-2018 Intent Ricarda Sher CNP Comments: 20mg Toradol Injection, 30 mg (J1885)By: On: 13-May-2016 Intent Kellen Adorno DO, DO, Comments: lot: [id number]-RIbem:03/09/17site/route: RGBhupinder/IMamt: 1mLVIS signed when applicableFAUSTINO Cooper MRI OF LUMBAR SPINE WITH AND WITHOUT On: 29-Apr-2016 Intent CONTRAST (57648)By: Ricarda Sher CNP Toradol Injection, 30 mg (J1885)By: On: 29-Apr-2016 Intent Ricarda Sher CNP Toradol Injection, 30 mg (J1885)By: On: 30-Dec-2013 Intent Mary Washington MD Eprescribed prescriptions (G8553)By: On: 21-Dec-2012 Intent Long MAKE UP ARTIST, Emilia L Ultrasound - ThyroidBy: Felix WATERS, On: 11-Sep-2012 Intent Mary Roe Eprescribed prescriptions (G8553)By: On: 11-Sep-2012 Intent Long MAKE UP ARTIST, Emilia L Toradol Injection, 30 mg (J1885)By: [...] SPECIFIED, 10 MG Ordered: 23-Jan-2018 Pending Ricarda Sher CNP Instructions Name Dates Details Nonsmoker : [...] Migraine : Patient Instructions Indication: Migraine Encounters Annotation/Addendum On: 08-Apr-2018 13:44 Encounter Diagnosis: Tooth [...] Nutrition: balanced diet and supplemental vitamins. The de dical issues the patient is following up [...] 14:52 [facility] Office Visit On: 1-Dec-2014 11:51 Encounter Diagnosis: Fibromyalgia (729.1), Obesity,unspecified (278.00) [...] with minor complaints (sore throat - tonsilectomy 2009) and is sleeping well. Current medication use: [...] (278.00) [facility] Payers [place]/Miguel Macias; harrison guarantor
--- OUTSIDE RECORDS SUMMARY | 2018-07-03 06:36 | XMS RPT_ITS | Continuity of Care Document ---
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 [employer]ILITY 10 MG Oral Tablet Dispersible uad Tablet Disperse 1 at onset, then may repeat in 2 hours if not gone for 0 days Quantity: 36 {Tablet} Refills: 3 Ordered:05-Aug-2016 Andrzej Adorno DO, DO, Kathleen Start : 05-Aug-2016 Active Comments:Max (2) in 24 hours Maxalt-MANAGER UTILITY 10 MG Oral Tablet Dispersible uad Tablet [...] 23-Nov-2012 End : 07-Dec-2012 Inactive Comments:called to [facility] ER 400 MG Oral Tablet Extended [...] Quantity: 1 {Cream} Refills: 0 Ordered:21-Dec-2012 BETTY eWrner Start : 23-Nov-2012 End : 21-Dec-2012 Inactive [...] Lumbar (Routine) Result: Comments: See Note; NOTES: [facility] Imaging Services [address] [place] [address] [place] 4d Spine Lumbar (Routine) MR#: [id number] Acct: [id number] Name: LACEY MACIAS p #: [id number] : 1970 F 45 From: Pierre Rebollar MD PCP: Kellen Adorno DO Status: REG CLI Study: Spine Lumbar (Routine) Date of Exam: 05/13/16 Exam# [id number] Ordering Dr: Ricarda Sher STUDY : MRI [...] MD at 21:54 EST , Service support [phone], CC: Ricarda Sher; Kellen Adorno DO Sofa Back Upholsterer: Signed 09-Apr-2016 Re-Evaluation - PT (1) Result: Comments: See Note; NOTES: [facility] [address] [place] [address] Fax REEVALUATION / MEDICARE RECERT IFICATION [place] 4d PHYSICAL THERAPY MR#: [id number] Acct: [id number] Name: LACEY MACIAS Rep #: [id number] : 1970 45 From: Soniya Fernandez PT, [...] not hesitate to contact me a t [phone] by phone or if you have questions or concerns regarding this new plan of care! Sincerely, Soniya Fernandez <Electronically signed by Soniya Fernandez PT, Cert. MDT& amp;#62; 04/09/16 1006 CC: Kellen Adorno DO GINA Signed For Medicare only, by signing this I certify the plan of care. Physicians Signature Date 09-Feb-2016 Inital Evaluation (1) - PT Result: Comments: See Note; NOTES: [facility] [address] [place] [address] Fax [facility] [place] EVALUATION MR#: [id number] Acct: [id number] Name: LACEY MACIAS Rep #: [id number] : 1970 45 From: Soniya Fernandez PT, Cert. 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 CURRENTLY NOT OFF WORK. Disability: NO. Present [...] AND HAS HAD MASSAGE THERAPY HERE AT [facility]. Coughing/sneezing/straining: POSITIVE. DIFFICULTY SWALLOWING - NEGATIVE. DIZZINESS [...] to be FAXED BACK to us at [phone] for Medicare purposes. 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 Exercise History Comments: Light [...] Calculated 1.84 m2 Head Circumference 0.00 cm 8-Qri-202330:00 Temperature 98.2 f Comments: Method: Oral Pulse [...] 0.00 cm Results Date Description Value Details 5-Qnq-815996:44 REVERSE TRIDOTHYRONINE Comments: PATIENT NOT FASTINGPERFORMED BY: [facility]At[facility] [id number] BY: [place] [id number] ([id number]) Reverse T3, Serum 17.6 ng/dL (Normal) Range: 9.2-24.1 5-Kvl-575585:44 Anti-TPO Antibody (51195) Comments: PATIENT NOT FASTINGPERFORMED BY: NurseBuddy [facility] Medical CenterPayBox Payment SolutionsAtrium Health [facility] [id number] BY: [employer] [id number] Thyroid Peroxidase (TPO) Ab 13 {IU/mL} (Normal) Range: 0-34 7-Lff-851078:44 TSH (15471) Comments: PATIENT NOT FASTINGPERFORMED BY: [employer]70 [facility] [id number] BY: Snap[employer] [id number] TSH 1.390 {uIU/mL} (Normal) Range: 0.450-4.500 1-Mly-209868:44 T4, FREE (THYROXINE) Comments: PATIENT NOT FASTINGPERFORMED BY: [employer] [facility] [id number] BY: [place] 591577 [facility] [id number] (89090) T4,Free(Direct) 1.02 ng/dL (Normal) Range: 0.82-1.77 1-Fto-364158:44 T3, FREE (TRIDOTHYRONINE) Comments: PATIENT NOT FASTINGPERFORMED BY: [address] [id number] BY: [address] [id number] (38792) Triiodothyronine,Free,Serum 3.2 pg/mL (Normal) Range: 2.0-4.4 63-Ewi-977396:13 Cortisol (14012) Comments: PATIENT NOT FASTINGPERFORMED BY: [address] [id number] Cortisol 10.4 ug/dL (Normal) Range: 2.3-19.4 Comments: Cortisol AM 6.2 - 19.4 Cortisol PM 2.3 - 11.9 85-Wkt-379719:13 TSH (THYROID STIMULATING Comments: PATIENT NOT FASTINGPERFORMED BY: [address] [id number] Information: [id number] HORMONE) (63437) TSH 1.820 {uIU/mL} (Normal) Range: 0.450-4.500 73-Xdu-46419:21 Urinalysis, Office (92954) UA - LEUKOCYTE ESTERASE Negative (Normal) UA - NITRITE Negative (Normal) URINE UROBILINGN ALEXANDER TIMED 2 mg/dL (Normal) UA - PROTEIN Negative mg/dL (Normal) UA - PH 7.0 (Normal) UA - BLOOD Negative (Normal) UA - SPECIFIC GRAVITY 1.010 (Normal) UA - KETONES Negative mg/dL (Normal) UA - BILIRUBIN Negative (Normal) UA - GLUCOSE Negative (Normal) 55-Iqy-557695:14 Throat Culture (27989) Comments: PATIENT NOT FASTINGPERFORMED BY: [address] [id number] Information: SRC:THRT ADD [id number] Result 1 RRF (Normal) Comments: Routine respiratory skylar Upper Respiratory Culture Final report (Normal) 47-Ozg-842692:14 Rapid Strep Test, Office (54835) Rapid Strep Test, Office Negative (Normal) 31-Jbx-304718:38 Poliovirus Immune Status Comments: PATIENT NOT FASTINGPERFORMED BY: Snapjoy[address] [id number] BY: SnapjoyAcuteCare Health SystemQnwhyg1961 [facility] [id number] Poliovirus Type III >=1:8 (Normal) Comments: .This test was developed and its performance characteristics determinedby [employer]. It has not been cleared or approved by [facility] Food and Drug Administration. The FDA has deter mined that s uchclearance or approval is not necessary. This test is used for clinicalpurposes. It should not be regarded as investigational or research. Poliovirus Type II <1:8 (Normal) Comments: .This test was developed and its performance characteristics determinedby [employer]. It has not been cleared or approved by [facility] Food and Drug Administration. The FDA has deter mined that s uchclearance or approval is not necessary. This test is used for clinicalpurposes. It should not be regarded as investigational or research. Poliovirus Type I <1:8 (Normal) Comments: .This test was developed and its performance characteristics determinedby [employer]. It has not been cleared or approved by [facility] Food and Drug Administration. The FDA has deter mined that s uchclearance or approval is not necessary. This test is used for clinicalpurposes. It should not be regarded as investigational or research. 77-Xsk-201292:38 MUMPS ANTIBODY, IgG 63517 Comments: PATIENT NOT FASTINGPERFORMED BY: Snapjoy[address] [id number] BY: SnapjoyAcuteCare Health SystemUiegis3606 [facility] [id number] (67781) Mumps Abs, IgG 1.56 {index} (Abnormal) Range: 0.00-0.90 Comments: Negative <0.91 Equivocal 0.91 - 1.09 Positive >1.09 Presence of antibodie s to Mumps is presumptive evidence of immunity except when active infection is suspected. 4-Pir-816259:59 THYROID Radiology Report See Note (Normal) Comments: [...] Sanchez M.D.September 14, 2012 at 4:08:36 PM [phone] lly Signed GP/GP If you are the referring physician and would like to consult with theradiologist who provided this interpretation, please contact [place] at [phone]. If this radiol ogist is unavailable, youwill be directed to another radiologist to assist. If you are a patient with a question regarding this report, pleasecontactyour referring physician directly. Professional Inter pretation Provided By: [employer], Phone , These documents contain legally protected [...] radiologist regarding this report, please call our 73O7pmdlodz line @ Dictated on 09/12/11 1233 by [...] radiologist regarding this report, please call our 96A0flxzpeg line @ Dictated on 09/12/11 1233 by Roman Gallagher DOribed on 09/12/11 1440 by ITS IMPORTSign by Jovanny Gallagher DO on 09/12/111440 Sign by: Conrad Gallagher DO CCP Antibodies 2 {units} (Normal) Comments: PATIENT NOT FASTINGPERFORMED BY: [facility] Zeojdf3503 [facility] [id number] BY: [employer] [id number] 2:15 IgG/IgA Range: 0-19 Comments: Negative <20 Weak positive 20 - 39 Moderate positive 40 - 59 Strong positive >59 6-Uez-389317:15 RHEUMATOID FACTOR-QUANT Comments: PATIENT NOT FASTINGPERFORMED BY: [facility] Jmsqjp1664 [facility] [id number] BY: [employer] [id number] (81498) RA Latex Turbid. 7.4 {IU/mL} (Normal) Range: 0.0-13.9 7-Ueb-527884:15 CALCIFIDIOL (94788) VIT D Comments: PATIENT NOT FASTINGPERFORMED BY: [facility] Qckoiw6089 [facility] [id number] BY: [employer] [id number] 25 Vitamin D, 25-Hydroxy 30.8 ng/mL (Normal) Range: 30.0-100.0 Comments: Vitamin D deficiency has been defined by the [place] ofMedicine and an Endocrine Society practice guideline as alevel of serum 25-OH vitamin D less than 20 ng/mL (1,2).The Endocrine Society went on to further define vitamin Dinsufficiency as a level between 21 and 29 ng/mL (2).1. IOM ([place] of Medicine). 2010. Dietary reference intakes for calcium and D. [place]: The National Academies Press.2. Nai TRINH, Jordan VELASCO, Pricila DONALD, et al. Evaluation, treatment, and prevention of vitamin D deficiency: an Endocrine Society clinical practice guideline. JCEM. 2010; 96(7):1911-30. 4-Hgf-590276:15 Folate (62896) Comments: PATIENT NOT FASTINGPERFORMED BY: [facility] Sfiane6187 Silva RoadDublin [place] [id number] BY: [address] [id number] Folate (Folic Acid), Serum >19.9 ng/mL (Normal) Comments: Indeterminate: 2.2 - 3.0 Deficient: <2.2 4-Ody-469847:15 VITAMIN B-12 (CYANOCOBALAMIN) Comments: PATIENT NOT FASTINGPERFORMED BY: [facility] Whygtr8909 Silva RoadDublin [place] [id number] BY: [address] [id number] (00652) Vitamin B12 746 pg/mL (Normal) Range: 211-946 0-Fgn-940378:15 TSH (68498) Comments: PATIENT NOT FASTINGPERFORMED BY: [facility] Jzjxnw1057 Silva RoadDublin [place] [id number] BY: [address] [id number] TSH 1.850 {uIU/mL} (Normal) Range: 0.450-4.500 1-Yft-159695:15 SED RATE ERYTHROCYTE Comments: PATIENT NOT FASTINGPERFORMED BY: [facility] Hgbabz5518 Silav RoadDublin [place] [id number] BY: [address] [id number] (91798) Sedimentation Rate-Westergren 19 mm/h (Normal) Range: 0-32 1-Hrz-630892:15 METABOLIC PANEL, Comments: PATIENT NOT FASTINGPERFORMED BY: [facility] Iwgstj5192 Silva RoadDublin [place] [id number] BY: [address] [id number] COMPREHENSIVE (96291) ALT (SGPT) 27 [iU]/L (Normal) Range: 0-40 [...] Glucose, Serum 87 mg/dL (Normal) Range: 65-99 0-Odc-749756:15 C-REACTIVE PROTEIN (41412) Comments: PATIENT NOT FASTINGPERFORMED BY: [facility] Hsxqzf8776 [facility] [id number] BY: [facility] Nmiifawrrx2100 [facility] [id number] C-Reactive Protein, Quant 14.1 mg/L (Abnormal) Range: 0.0-4.9 4-Fxh-848906:15 CBC (AUTO) (29200) Comments: PATIENT NOT FASTINGPERFORMED BY: [place]joy[place] 3882870 [facility] [id number] BY: [employer] [id number] Platelets 367 {x10E3/uL} (Normal) Range: 140-415 RDW 13.8 % (Normal) Range: 11.7-15.0 MCHC 33.2 g/dL (Normal) Range: 32.0-36.0 MCH 29.1 pg (Normal) Range: 27.0-34.0 MCV 88 fL (Normal) Range: 80-98 Hematocrit 39.7 % (Normal) Range: 34.0-44.0 Hemoglobin 13.2 g/dL (Normal) Range: 11.5-15.0 RBC 4.53 {x10E6/uL} (Normal) Range: 3.80-5.10 WBC 6.8 {x10E3/uL} (Normal) Range: 4.0-10.5 4-Wyh-878758:15 PENNY (ANTINUCLEAR ANTIBODY) Comments: PATIENT NOT FASTINGPERFORMED BY: [place] 3882870 [facility] [id number] BY: Snapjoy[address] [id number] (03878) PENNY Direct Negative (Normal) Plan of Care [...] unspecified Planned Observations polio immune status antibodies [id number] (34565)Indication: School physical exam On: 54-Tbf-423606:41 Request Anti-TPO Antibody (41522)Indication: Goiter On: :49 Request TSH (74404)Indication: Goiter On: 11-Sep-20129:49 Request T4, FREE (THYROXINE) (73779)Indication: Goiter On: :49 Request T3, FREE (TRIDOTHYRONINE) (21121)Indication: Goiter On: :49 Request CCP ANTIBODY (63875)Indication: Pain in unspecified joint On: 2-Nzw-969717:56 Request Planned Procedures Kenalog Injection, 10 mgm (J3301)By: On: 23-Jan-2018 Intent Ricarda Sher CNP Comments: 20mg Toradol Injection, 30 mg (J1885)By: On: 13-May-2016 Intent Kellen Adorno DO, DO, Comments: lot: [id number]:03/09/17site/route: RGBhupinder/IMamt: 1mLVIS signed when applicableFAUSTINO Cooper MRI OF LUMBAR SPINE WITH AND WITHOUT On: 29-Apr-2016 Intent CONTRAST (67214)By: Ricarda Sher CNP Toradol Injection, 30 mg (J1885)By: On: 29-Apr-2016 Intent Ricarda Sher CNP Toradol Injection, 30 mg (J1885)By: On: 30-Dec-2013 Intent Mary Washington MD Eprescribed prescriptions (G8553)By: On: 21-Dec-2012 Intent Long CHIEF JUVENILE PROBATION OFFICER, Emilia L Ultrasound - ThyroidBy: Felix WATERS, On: 11-Sep-2012 Intent Mary Roe Eprescribed prescriptions (G8553)By: On: 11-Sep-2012 Intent Long CHIEF JUVENILE PROBATION OFFICER, Emilia L Toradol Injection, 30 mg (J1885)By: [...] Nutrition: balanced diet and supplemental vitamins. The ky dical issues the patient is following up [...]
--- OUTSIDE RECORDS SUMMARY | 2018-07-03 06:37 | XMS RPT_ITS ---
:1970 Author Organization OHIP Care Team Providers Name Role Phone CLAYTON WHATLEY Referring Unavailable YANETH WHATLEYNA B Referring Unavailable ELVIA FAROOQ Referring Unavailable ELVIA FAROOQ Admitting Unavailable ELVIA FAROOQ Attending Unavailable ELVIA FAROOQ Referring Unavailable OSEASELVIA MCCOY Referring Unavailable CiesaRicarda Attending Unavailable SanjuanaesRicarda terry Referring Unavailable Faustino, Kellen Primary Care Unavailable SATCLAYTON RAMIREZ BINDIGANAVALE Referring Unavailable SATCLAYTON RAMIREZ BINDIGANAVALE Referring Unavailable ELVIA FAROOQ ZOHRAB Referring Unavailable OSEASELVIA MCCOY ZOHRAB Referring Unavailable OSEASELVIA MCCOY ZOHRAB Admitting Unavailable ELVIA FAROOQ ZOHRAB Attending Unavailable ELVIA FAROOQ ZOHRAB Referring Unavailable Adan Ocampo Attending Unavailable Mary Washington Primary Care Unavailable Adan Ocampo Admitting Unavailable Adan Ocampo Attending Unavailable Mary Washington Primary Care Unavailable Adan Ocampo Attending Unavailable Mary Washington Primary Care Unavailable Adan Ocampo Admitting Unavailable PROBLEMS PROBLEMS DATE TYPE CONDITION / CODE ATTENDING STATUS SOURCE 05/08/2018 Unknown R10.9 - Unspecified Ricarda Sher Active [place] abdominal pain / Community R10.9(ICD-10) Hospital Repository 05/08/2018 Unknown N39.0 - Urinary CiRicarda anderson Active [place] tract infection, Community site not specified Hospital / N39.0(ICD-10) Repository 05/08/2018 Unknown R31.9 - Hematuria, Ricarda Sher Active [place] unspecified / Community R31.9(ICD-10) Hospital Repository 11/11/2017 Active Spondylosis without OSEAS, Active [place] myelopathy or [facility] Other radiculopathy, [place] lumbar region / Repository M47.816(ICD-10) 11/05/2017 Active Encounter for other NA Active [facility] preprocedural [facility] Other examination / [place] Z01.818(ICD-10) Repository 10/01/2017 Admitting Unknown / NA Active [facility] diagnosis [facility]K(Unknown) [facility] System Repository 10/01/2017 Active Radiculopathy, NA Active [place] lumbosacral region Clinic Other / M54.17(ICD-10) [place] Repository PROCEDURES PROCEDURES No Procedure Records FoundRESULTS RESULTS ABDOMEN/PELVIS WITHOUT Observed: 05/08/2018 Status: F Source: [place] CONT 10:45 AM [facility] REPOSITORY [facility] Imaging Services [address] [place] [address] Abdomen/Pelvis without Cont MR#: [id number] Acct: [id number] Name: LACEY MACIAS Rep #: [id number] : 1970 F 47 From: Macario Sanchez MD PCP: Kellen Harmon DO Status: REG CLI Study: Abdomen/Pelvis without Cont Date of Exam: 05/08/18 Exam# [id number] Ordering Dr: Ricarda Sher 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 Bilateral flank pain. RADIATION DOSAGE (If Supplied By Facility): CTDIvol = ( 13.21 ) mGy, DLP = ( 709.76 ) mGycm TECHNIQUE: Transaxial images were obtained from the dome of the diaphragm to the symphysis pubis without oral contrast, and without intravenous contrast. Sagittal and coronal images were reconstructed. Individualized dose optimization techniques were used for this CT. COMPARISON: None. FINDINGS: The visualized lung bases are unremarkable. The visualized portions of the heart are within normal limits. Normal liver. There are surgical clips in the gallbladder fossa consistent with a prior cholecystectomy. Normal spleen. Normal pancreas. Normal bilateral adrenal glands. Normal right kidney. Normal left kidney. There is a small hiatal hernia. Normal small intestine. There are scattered colonic diverticula consistent with diverticulosis. The appendix is visualized and appears normal. Normal abdominal aorta. Normal inferior vena cava. Normal retroperitoneum. Normal urinary bladder. There is a 1.4 cm x 1.6 cm follicle in the left ovary. Normal abdominal wall. Normal osseous structures. CT/Abdomen/Pelvis without Cont IMPRESSION: Scattered sigmoid diverticula. Dominant follicle in the left ovary. Electronically Signed: Macario Sanchez MD at 11:14 EST Tel [phone], Service support , CC: Ricarda Sher NP; Kellen Harmon DO Peer Tutor: Signed RENAL PROFILE Collected: 05/08/2018 Status: F Source: [place] 10:33 AM [facility] REPOSITORY TYPE CODE TESTS RESULT OUT OF RANGE REFERENCE UNITS LAB L501.0100 74-106 mg/dL Normal GLU 103 Result Comment: Fasting Glucose result from 100 to 125 mg/dL suggests IMPAIRED HOMEOSTASIS per A.D.A. criteria. Please note revised GLUCOSE reference range effective 2017. LAB L501.1000 7-18 mg/dL Normal BUN 13 LAB L501.1100 0.55-1.02 mg/dL Normal CREAT,SERUM 0.72 Result Comment: The validity of the calculated GFR AND GFRAA in patients over 70 years has not been determined. Clinical correlation is essential. LAB L501.1110 >60 mL/min Normal EST GFR 92 Result Comment: Non- GFR Calc LAB L501.1115 >60 mL/min Normal EST GFR - AA 112 Result Comment: GFR Calc LAB L501.1300 10-20 RATIO Normal BUN/CRE 18.0 LAB L501.1800 3.2-5.0 g/dL Normal ALB 3.7 LAB L501.2200 8.5-10.1 mg/dL CA Normal 8.6 LAB L501.2300 2.5-4.9 mg/dL Normal PHOS 3.1 LAB L501.5300 136-145 mmol/L NA Normal 141 LAB L501.5600 3.5-5.1 mmol/L K Normal 4.2 LAB L501.5900 98-107 mmol/L CL Normal 105 LAB L501.6100 21.0-32.0 mmol/L Normal CO2 29.0 Performed By: #### L500.3600 #### [facility] [address] [place], [address] Observed: 05/08/2018 Status: F Source: [place] CULTURE, URINE 10:33 AM [facility] REPOSITORY Urine Culture ORGANISM 1: Presumptive E. coli [place] Count >100,000 Presumptive E. coli: REACTION Amoxacillin/Clavulanic Acid $ <=2 S Ampicillin $ <=2 S Ampicillin/Sulbactam $ <=2 S Cefazolin $ <=4 S Cefepime $ <=1 S Ceftriaxone $ <=1 S Ciprofloxacin $ <=0.25 S ESBL - Ertapenim $$$ <=0.5 S Gentamicin $ <=1 S Imipenem *NF <=0.25 S Levofloxacin $ <=0.12 S Nitrofurantoin $ <=16 S Piperacillin/Tazobactam $$ <=4 S Tobramycin $ <=1 S Trimethoprim/Sulfametho $ <=20 S (NF) indicates non-formulary drug at [facility]. Approval by Infectious Disease Specialist required before non-formulary drugs may be ordered and/or dispensed. Performed By: #### M100.0650 #### [facility] [address] [place], [address] PLAN OF CARE Observed: 11/13/2017 Status: COMPLETED Source: [place] 11:25 AM [facility] OTHER CAMPUS REPOSITORY HNO ID: [id number] Author: Ellie Rodriguez (Heavy Duty Custodian) Service: (none) Author Type: (none) Type: Plan of Care Filed: 11/13/2017 11:26 AM Note Text: Pharmacy Discharge Medication Service: This patient has elected to receive their discharge prescriptions through the [facility] Bedside Prescription Delivery program. The prescriptions are currently being processed. PATIENT HAS ELECTED TO RN X RAY THEIR PRESCRIPTIONS IN OUTPATIENT PHARMACY, PLEASE BE AWARE THAT PHARMACY CLOSES AT 530 PM.Please contact me with any questions or updates to the patient's discharge medications. Ellie Rodriguez ([employer]) DCT Contact Info: [phone] PLAN OF CARE Observed: 11/13/2017 Status: COMPLETED Source: [place] 11:23 AM [facility] REPOSITORY HNO ID: [id number] Author: Ellie Rodriguez ([employer]) Service: (none) Author Type: (none) Type: Plan of Care Filed: 11/13/2017 11:25 AM Note Text: ASSISTANT NEWS DIRECTOR BEDSIDE DELIVERY SURVEY 1. Patient to use [facility] Bedside Delivery - YES 2. If fax, patient would like us to fax prescriptions to Pharmacy of choice a. Pharmacy: b. Location: c. Phone: 3. Insurance card on file - YES 4. Credit card for payment - YES Peroccet 5/325 mg Flexeril 10 mg Contact Ellie at [phone] with questions prior to discharge PLAN OF CARE Observed: 11/13/2017 Status: COMPLETED Source: [place] 11:16 AM [facility] REPOSITORY HNO ID: [id number] Author: Jeni Cardenas (Pharmacist) Service: Pharmacy Author Type: Pharmacist Type: Plan of Care Filed: 11/13/2017 11:17 AM Note Text: PHARMACY DISCHARGE MEDICATION COUNSELING PATIENT NAME: Lacey Macias DATE of SERVICE: 11/13/17 TIME of SERVICE: 1100 The patient accepted medication counseling for the discharge medications below. The patient was given the opportunity to ask questions regarding medication indication, interactions and side effects. Discharge Medications: Percocet and Flexeril Patient verbalizes understanding of counseling. Signature: JENI CARDENAS PHARMACIST Date: November 13, 2017 Time: 11:16 AM CNDS Observed: 11/13/2017 Status: COMPLETED Source: [place] 8:27 AM [facility] REPOSITORY HNO ID: [id number] Author: Elvia Farooq Service: Neurosurgery Author Type: Physician Type: Discharge Summaries Filed: 11/13/2017 8:28 AM Note Text: DISCHARGE SUMMARY PATIENT NAME: Lacey Macias ADMISSION DATE: 11/11/2017 DISCHARGE DATE: 11/13/2017 ATTENDING PHYSICIAN: Elvia Farooq REASON FOR HOSPITALIZATION: lumbar laminectomy DIAGNOSIS: Active Problems: Lumbar spondylosis Obesity, Class II, BMI 35-39.9 Resolved Problems: * No resolved hospital problems. * Ruled Out OPERATIONS DURING HOSPITALIZATION: lumbar laminectomy PROCEDURES DURING HOSPITALIZATION: No procedures performed HOSPITAL COURSE: Patient had an uncomplicated hospital course LABS AND PROCEDURES PENDING AT DISCHARGE: No pending results. CONSULTING TEAMS DURING HOSPITALIZATION: None PATIENT CONDITION AT DISCHARGE: Good DISCHARGE DISPOSITION: Home/Self Care INFORMATION PROVIDED TO PATIENT: (To pull info documented from the DC Instruct Orderset Complete O/S First): DISCHARGE MEDICATION: Current Discharge Medication List CONTINUE these medications which have NOT CHANGED acetaminophen (TYLENOL) 325 mg cap Take by mouth as needed. buPROPion SR (ZYBAN SR; WELLBUTRIN SR) 150 mg Take 150 mg by mouth once daily. spironolactone (ALDACTONE) 25 mg Take 25 mg by mouth once daily. FUTURE APPOINTMENTS: Follow Up with Dr. Farooq in 10-14 days TIME OF CARE (Use first blank if not applicable): TIME OF CARE: Discharge Management: I personally spent less than 30 minutes involved in the discharge management of this patient. SIGNATURE: Elvia Farooq MD PATIENT NAME: Lacey Macias DATE: November 13, 2017 TIME: 8:27 AM PAGER/CONTACT #: [phone] CASE MGT INIT Observed: 11/12/2017 Status: COMPLETED Source: [facility] 11:35 AM CLINIC OTHER CAMPUS REPOSITORY HNO ID: [id number] Author: Ellie KimRnMarilee Basurto RN Service: Care Management Author Type: Registered Nurse Type: Care Mgt Initial Assessment Filed: 11/12/2017 11:44 AM Note Text: CARE MANAGEMENT: ASSESSMENT AND DISCHARGE PLAN SERVICE DATE: 11/12/2017 SERVICE TIME: .now PRIMARY CARE PHYSICIAN: Kellen Harmon DO ADMISSION STATUS: Inpatient Needs Prior to Discharge: Discharge Prescriptions 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 No Advance Directive: Health Literacy: 1. How often do you need to have someone help you when you read instructions, pamphlets, or other written material from your doctor or pharmacy? Never - 1 2. How confident are you filling out medical forms by yourself? Extremely - 1 If Patient scores > 3 on either question, the following interventions were put into place: Patient did not score > 3 FUNCTIONAL AND COGNITIVE/BEHAVIORAL PRIOR TO ADMISSION: Baseline Mental Status: Alert AND Oriented, Person, Place , Time and Situation Functional Status: Independent Does Patient Currently Receive Any Community Services or Home Care? None Equipment Prior to Admission: None Has the Patient Been in a Shelter Facility in the Past 30 days? 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 No Caregiver Needed Patient's transition needs and plan for meeting these needs: There are no needs at this time- will continue to follow and reassess for transitional care needs Does the patient have an acute stroke diagnosis, or has the patient had a stroke during this admission? No Medication Adherence: I am convinced of the importance of my prescription medication: Agree completely - 0 I worry that my prescription medication will do more harm than good to me Disagree mostly - 0 I feel financially burdened by my [id number] expenses for my prescription medication: Disagree mostly -0 Patient is categorized as low risk < 2 Are you interested in bedside delivery of your medications? No Food Concerns: In the Last Month, Have You had Trouble Getting Food? No trouble getting food During the Last Month, Have You Worried Whether Your Food Would Run Out Before You Had Enough Money to Buy More? No Is the Patient Psychosocially Complex? 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 PT- recs home w/ family assist prn. Family available at home to assist patient as needed. Family to transport home at discharge. No needs for d/c at this time, cm to continue to follow. THERAPY NT Observed: 11/12/2017 Status: COMPLETED Source: [place] 10:04 AM CLINIC OTHER CAMPUS REPOSITORY HNO ID: [id number] Author: Edgar (Pt) Smita Service: Physical Therapy Author Type: Physical Therapist Type: Therapy (PT/OT/Speech/Resp) Filed: 11/12/2017 10:09 AM Note Text: Physical Therapy Evaluation SERVICE DATE: 11/12/2017 SERVICE TIME: 914 to 944 ROOM: [place] [address] Recommended Discharge Disposition: Home Anticipated Discharge Needs: Physical Assist at Home Physical Assist at Home for: Cleaning;Laundry;Meals;Shopping;Transportation PT Recommendations to Nursing: Ambulate without device;To bathroom;In halls;OOB for Meals;With assist of 1 person (stand by assist) PT 6 Clicks Score: 21 Precautions/Activity Restrictions: Lines/Tubes/Drains;Sternal ASSESSMENT : Patient presents with POD #1 DECOMPRESSION LAMINECTOMY 4TH ADD'L LUMBAR SEGMENT; a medically stable condition with limited functional impairments which minimally impact safe mobility. The patient will require skilled therapy for PT problems that may include balance, gait safety with or without an assitive device and home safety education. Patient Disposition at Start of Session: Supine in Bed Patient Disposition at End of Session: OOB in Chair;Call [place] in Reach Tolerated Full Session Physical Therapy Problem List: Education Deficit;Pain;Impaired Self Care;Decreased Range Of Motion;Decreased Strength;Functional Mobility Impairment;Balance Impaired Patient /Caregiver Goals: Go Home Goals for Plan of Care: Transfer supine to/from sit with: Independent Ambulate with: Independent Distance: 250 Goal: Independent with spinal precautions Rehab Potential: Good PLAN: Treatment Frequency (times per week): 7 (4-7) Current admission Treatment Interventions: Education;Self Care / Home Management;Energy Conservation Training;Strengthening;Functional Mobility Training;Balance Training;Pain Management Plan of Care developed with: Patient TREATMENT INTERVENTIONS: Therapy Diagnosis: Reduced mobility-other;Muscle Weakness (generalized);Unsteadiness on feet;Difficulty walking-musculoskeletal Interventions Provided: Evaluation;Therapeutic Activity (03154) $ Evaluation-Low (04941) Billed Units: 1 unit Therapeutic Activity (70345) Treatment Minutes: 15 1 unit Skilled Intervention(s): Educated patient on spinal precautions, role of PT in hospital and plan of care, progressing ambulation in hospital and after discharge, log-roll technique, issued Home Instruction handout reinforcing education, mobility safety, energy conservation. Patient able to recall/recite spinal precautions at end of session. Total Timed Code Treatment Minutes: 15 Total Treatment Time (minutes): 30 FUNCTIONAL G CODE: PT 6 Clicks Score: 21 (11/12/17914) Mobility: Walking and Moving Around Current Status (G8978): CJ (11/12/17914) Mobility: Walking and Moving Around Goal Status (G8979): CH (11/12/17914) Based on clinical assessment and the score on the 6 Clicks Functional Assessment Tool, the G code and corresponding severity modifiers are documented above. SUBJECTIVE: Current Hospital Course: Chart reviewed; POD #1 DECOMPRESSION LAMINECTOMY 4TH ADD'L LUMBAR SEGMENT, lab values and vital signs not significant to PT session today. Reason for Physical Therapy Consult : lumbar decompression/laminectomy Active Hospital Problems Diagnosis - Lumbar spondylosis PAST MEDICAL HISTORY Diagnosis Date - Anxiety - Fibromyalgia - Lumbar spinal stenosis PAST SURGICAL HISTORY Procedure Laterality Date - CHOLECYSTECTOMY HX 1996 - PAST SURGICAL HISTORY OF AGE 18 WISDOM TEETH PULLED - TONSILLECTOMY HX AGER 32 Patient Report: Identification verified x2, patient agreeable to therapy. Has not been out of bed yet. 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[facility]) OBJECTIVE: CURRENT FUNCTIONAL STATUS: Current Functional Mobility Assist Level Additional Information Rolling Supine to Sit Contact Guard Assistance Sit to Supine Scooting Stand By Assistance Sit to Stand Stand By Assistance Stand to Sit Bed to Chair Toilet/Commode Supervision Gait Stand By Assistance Gait Device: None Gait Distance (feet): 220 Stairs Stand By Assistance Stairs Device: Rail Number of Stairs: 4 Curb Step Car Transfer General Gait Deviations: Arm swing decreased;Non-functional gait speed Please see discipline specific clinical documentation flowsheet for complete details for this therapy evaluation/treatment. SIGNATURE: Edgar Ordoñez, PT PATIENT NAME: Lacey Macias DATE: November 12, 2017 TIME: 10:04 AM PAGER/CONTACT #: [phone] PROGRESS Observed: 11/12/2017 Status: COMPLETED Source: [place] 9:15 AM [facility] REPOSITORY HNO ID: [id number] Author: Escobar Cagle Service: Neurosurgery Author Type: Physician Type: Progress Notes Filed: 11/12/2017 9:16 AM Note Text: Neurosurgery : Back pain postop. Some R leg pain. Moving extremities normally. Has small amount of hemovac drainage. Escobar Cagle MD NURSING PROG Observed: 11/11/2017 Status: COMPLETED Source: [place] 7:34 PM [facility] REPOSITORY HNO ID: [id number] Author: Kia (Rn) CAMELIA Hernadez Service: Nursing Author Type: Registered Nurse Type: Nursing Progress Note Filed: 11/11/2017 7:34 PM Note Text: Sent text paged to neurosurg regarding complaints of nausea. ANES POST Observed: 11/11/2017 Status: COMPLETED Source: [place] 6:45 PM [facility] REPOSITORY HNO ID: [id number] Author: Asher Monae Service: Anesthesiology Author Type: Physician Type: Anesthesia PostOp Filed: 11/11/2017 6:45 PM Note Text: POST ANESTHESIA EVALUATION NOTE SERVICE DATE: 11/11/2017 SERVICE TIME: 6:45 PM : 1970 Vitals: 11/11/17 1108 11/11/17 1435 11/11/17 1520 11/11/17 1725 Temp: 36.5 ?C (97.7 ?F) 36.1 ?C (97 ?F) 36.2 ?C (97.2 ?F) 36.5 ?C (97.7 ?F) 11/11/17 1600 11/11/17 1615 11/11/17 16311/11/17 1725 BP: 107/78 108/55 106/62 103/68 11/11/17 1600 11/11/17 1615 11/11/17 1633 11/11/17 1725 Pulse: 76 72 78 80 11/11/17 1600 11/11/17 1615 11/11/17 1633 06/05/18 1725 Resp: 14 12 15 18 06/05/18 1600 11/11/17 1615 11/11/17 1633 11/11/17 1725 SpO2: 94% 91% 94% 93% Validated Vital Signs: Yes POST ANES STATUS: No apparent anesthetic complications. The patient is appropriately hydrated with stable respiratory and cardiovascular status. Patient has safe and adequate airway control. The patient has appropriate pain relief and no significant post operative nausea or vomiting. The patient has achieved baseline mental status. Further assessment by Anesthesia Service: None Other Remarks: SIGNATURE: Asher Monae MD PATIENT NAME: Lacey Macias DATE: November 11, 2017 TIME: 6:45 PM PAGER/CONTACT #: [phone] BRIEF OP NOT Observed: 11/11/2017 Status: COMPLETED Source: [place] 2:17 PM [facility] REPOSITORY HNO ID: [id number] Author: Elvia Farooq Service: Neurosurgery Author Type: Physician Type: Brief Op Note Filed: 11/11/2017 2:18 PM Note Text: BRIEF OPERATIVE / PROCEDURE NOTE LOG ID: [id number] SURGERY/PROCEDURE DATE: 11/11/2017 INCISION/PROCEDURE START TIME: 1:21 PM INCISION CLOSE/PROCEDURE END TIME: 2:14 PM SURGEON(S)/PROCEDURALIST(S) AND CHEMICAL TANK WORKER(S): Surgeon(s) and Role: * Elvia Farooq - Primary Meat Department Manager: Patrick Howell SA SURGERY/PROCEDURE(S): Lumbar laminectomy L4, L5 bilateral foraminotomies, L4, L5 ANESTHESIA: General FINDINGS: Severe lateral recess stenosis ESTIMATED BLOOD LOSS: 100 mls SPECIMENS: None COMPLICATIONS: None PRE-OP/PRE-PROCEDURE DIAGNOSIS: Degenerative spinal lumbar stenosis POST-OP/POST-PROCEDURE DIAGNOSIS: Degenerative lumbar spinal stenosis [M48.061] SIGNATURE: Elvia Farooq MD PATIENT NAME: Lacey Macias DATE: November 11, 2017 TIME: 2:17 PM PAGER/CONTACT #: SPINE SINGLE VIEW Observed: 11/11/2017 Status: F Source: [facility] 2:00 PM HEALTH SYSTEM REPOSITORY Performed at [facility] APPROVED BY: Usman Castaneda MD EXAM TITLE: INTRAOPERATIVE CROSSFIRE LATERAL VIEW OF THE LUMBAR SPINE. DATE: 11/11/2017 12:45 COMPARISON: 10/01/2017 CLINICAL INDICATION/HISTORY: The patient has spinal stenosis. The patient is undergoing posterior laminectomy L4-5. TECHNIQUE: Up to one hour of intraoperative fluoroscopic time was provided. The amount of intraoperative fluoroscopic time utilized is not indicated on the requisition. A single crossfire lateral vie w of the lower lumbar spine is presented. FINDINGS: There are soft tissue retractors posterior to the L4 and L5 vertebral bodies. There is a metallic probe positioned approximately 2.3 cm posterior to the level of L4-5. IMPRESSION: Intraoperative localization film as described above. ANES PREOP Observed: 11/11/2017 Status: COMPLETED Source: [place] 10:58 AM [facility] OTHER CAMPUS REPOSITORY HNO ID: [id number] Author: Asher Núñez Service: Anesthesiology Author Type: Physician Type: Anesthesia PreOp Filed: 11/11/2017 11:05 AM Note Text: ANESTHESIOLOGY DAY OF SURGERY NOTE SERVICE DATE: 11/11/2017 SERVICE TIME: 10:58 AM : 1970 Procedure(s) (LRB): LUMBAR 4-5 LAMINECTOMY (N/A) DECOMPRESSION LAMINECTOMY 4TH ADD'L LUMBAR SEGMENT (N/A) Surgeon(s): Elvia Farooq Estimated body mass index is 36.05 kg/m? as calculated from the following: Height as of this encounter: 162.6 cm (5' 4). Weight as of this encounter: 95.3 kg (210 lb). Most recent hematocrit and potassium results: Hematocrit 39.8 11/05/2017 Potassium 4.2 01/28/2016 ANES DOS/PREOP NOTE: Vitals: @MVITALS@ There is no problem list on file for this patient. PAST MEDICAL HISTORY Diagnosis Date - Anxiety - Fibromyalgia - Lumbar spinal stenosis PAST SURGICAL HISTORY Procedure Laterality Date - CHOLECYSTECTOMY HX 1996 - PAST SURGICAL HISTORY OF AGE 18 WISDOM TEETH PULLED - TONSILLECTOMY HX AGER 32 FAMILY HISTORY Problem Relation Age of Onset - Cancer Maternal Grandmother - Diabetes Maternal Grandmother - Cancer Paternal Grandfather Social History: Social History Substance Use Topics - Smoking status: Never Smoker - Smokeless tobacco: Never Used - Alcohol use Yes Comment: SOCIALLY No current facility-administered medications on file prior to encounter. No current outpatient prescriptions on file prior to encounter. No current facility-administered medications for this encounter. Allergies: ALLERGIES Allergen Reactions - Penicillins Swelling - Tramadol Vomiting DOS EXAM: Adequate NPO status: Yes Anesthetic risks, benefits, alternatives, personnel and consent discussed: Yes Patient agrees to proceed: Yes Previous Anesthesia: No history of adverse event. Airway Assessment: MP 2; Neck ROM: Full ROM without neurologic symptoms; Airway Evaluation: No significant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
--- OUTSIDE RECORDS SUMMARY | 2018-07-03 06:37 | XMS RPT_ITS | Continuity of Care Document ---
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 Fibromyalgia (M79.7, 729.1) Comments: stable [...] at L4-L5 level (M48.061, 724.02) Status: Active Weight gain (R63.5, 783.1) Status: [...] Quantity: 2 {Tablet} Refills: 0 Ordered:23-Jan-2018 Nikky GLORIARicarda Start : 23-Jan-2018 Active Diflucan 150 MG Oral Tablet 1 (one) Tablet one time dose for 1 days Quantity: 1 {Tablet} Refills: 3 Ordered:28-May-2017 Idalia Willis Start : 28-May-2017 Active Maxalt-ART PSYCHOTHERAPIST OR THERAPIST 10 MG Oral Tablet Dispersible uad Tablet Disperse 1 at onset, then may repeat in 2 hours if not gone for 0 days Quantity: 36 {Tablet} Refills: 3 Ordered:05-Aug-2016 Andrzej Adorno DO, DO, Kathleen Start : 05-Aug-2016 Active Comments:Max (2) in 24 hours Maxalt-ART PSYCHOTHERAPIST OR THERAPIST 10 MG Oral Tablet Dispersible uad Tablet [...] days Quantity: 20 {Tablet} Refills: 0 Ordered:23-Jan-2018 Rciarda Sher CNP Start : 23-Jan-2018 End : [...] End : 07-Dec-2012 Inactive Comments:called to kiki rosas Etodolac ER 400 MG Oral Tablet Extended Release [...] Santana LPN L End : 12-Sep-2011 Inactive Medrol 4 MG [...] days Quantity: 28 {Tablet} Refills: 1 Ordered:12-Sep-2016 Faustino VARGAS Idaniadominic Kellen Start : 12-Sep-2016 End : 12-Sep-2016 Inactive Topamax 50 MG Oral Tablet 1 Tablet 1/2 at night for 5 days then 1/2 bid for 5 days then 1.2 nikita and 1 at night for 5 days then 1 bid for 0 days Quantity: 180 {Tablet} Refills: 3 Ordered:12-Sep-2016 Faustino VARGASAndrzej DO Kellen Start : 12-Sep-2016 End : 12-Sep-2016 Inactive [...] : 12-Sep-2011 Discontinued Comments:This order discontinued per -. Allergies and Adverse Reactions Name Dates Details [...] Lumbar (Routine) Result: Comments: See Note; NOTES: [facility] Imaging Services [address] [place] [address] [place] [address] [place] 4d Spine Lumbar (Routine) MR#: [id number] Acct: [id number] Name: LACEY MACIAS p #: [id number] : 1970 F 45 From: Pierre Rebollar MD PCP: Kellen Adorno DO Status: REG CLI Study: Spine Lumbar (Routine) Date of Exam: 05/13/16 Exam# [id number] Ordering Dr: Ricarda Sher STUDY : MRI [...] MD at 21:54 EST , Service support [phone], CC: Ricarda Sher; Kellen Adorno DO Accredited Pharmacy Technician: Signed 09-Apr-2016 Re-Evaluation - PT (1) Result: Comments: See Note; NOTES: [facility] Physical [facility] [address] [facility] [facility]. [address] [place] [address] Fax REEVALUATION / MEDICARE RECERT IFICATION [place] 4d PHYSICAL THERAPY MR#: [id number] Acct: [id number] Name: LACEY MACIAS Rep #: [id number] : 1970 45 From: Soniya Fernandez PT, Cert. MDT Referring Dr.: Kellen Adorno DO Statu s: REG RCR [...] not hesitate to contact me harrison t [phone] by phone or if you have questions or concerns regarding this new plan of care! Sincerely, Soniya Fernandez <Electronically signed by Soniya Fernandez PT, Cert. MDT& amp;#62; 04/09/16 1006 CC: Kellen Adorno DO GINA Signed For Medicare only, by signing this I certify the plan of care. Physicians Signature Date 09-Feb-2016 Inital Evaluation (1) - PT Result: Comments: See Note; NOTES: [facility] [address] [place] [address]. [address] [place] [address] Fax REHABILITATION SERVICES INITIA L EVALUATION MR#: [id number] Acct: [id number] Name: LACEY MACIAS Rep #: [id number] : 1970 45 From: Soniya Fernandez PT, Cert. 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 CURRENTLY NOT OFF WORK. Disability: NO. Present [...] treatment: CHIROPRACTOR SINCE ABOUT AGE 14 STAR TING WITH ADJUSTMENTS FOR PREVENTION. TREATMENT WITH CHIROPRACTOR OF THE YEARS FOR MIGRAIN DONALD'S. LAST CHIROPRACTIC VISIT WAS ABOUT 6 MONTHS AGO. USUALLY GOES ABOUT 3-4 TIMES A YEAR. AUNT IS A [employer] ERAPIST AND HAS HAD MASSAGE THERAPY HERE AT [facility]. Coughing/sneezing/straining: POSITIVE. DIFFICULTY SWALLOWING - NEGATIVE. DIZZINESS [...] to be FAXED BACK to us at [phone] for Medicare purposes. 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 [id number] BY: [address] [id number] (32747) Reverse T3, Serum 17.6 ng/dL (Normal) Range: 9.2-24.1 :44 Anti-TPO Antibody (94596) Comments: PATIENT NOT FASTINGPERFORMED BY: [facility] [id number] BY: [address] [id number] Thyroid Peroxidase (TPO) Ab 13 {IU/mL} (Normal) Range: 0-34 :44 TSH (77709) Comments: PATIENT NOT FASTINGPERFORMED BY: [facility] [id number] BY: [address] [id number] TSH 1.390 {uIU/mL} (Normal) Range: 0.450-4.500 :44 T4, FREE (THYROXINE) Comments: PATIENT NOT FASTINGPERFORMED BY: [facility] [id number] BY: [address] [id number] (39714) T4,Free(Direct) 1.02 ng/dL (Normal) Range: 0.82-1.77 0-Rhk-841153:44 T3, FREE (TRIDOTHYRONINE) Comments: PATIENT NOT FASTINGPERFORMED BY: [facility] [facility] [id number] BY: [address] [id number] (25710) Triiodothyronine,Free,Serum 3.2 pg/mL (Normal) Range: 2.0-4.4 34-Dts-698955:13 Cortisol (73836) Comments: PATIENT NOT FASTINGPERFORMED BY: [place] [address] [facility] [id number] Cortisol 10.4 ug/dL (Normal) Range: 2.3-19.4 Comments: Cortisol AM 6.2 - 19.4 Cortisol PM 2.3 - 11.9 70-Nip-776873:13 TSH (THYROID STIMULATING Comments: PATIENT NOT FASTINGPERFORMED BY: [address] [id number] Information: [id number] HORMONE) (73928) TSH 1.820 {uIU/mL} (Normal) Range: 0.450-4.500 34-Ggf-88886:21 Urinalysis, Office (29304) UA - LEUKOCYTE ESTERASE Negative (Normal) UA - NITRITE Negative (Normal) URINE UROBILINGN ALEXANDER TIMED 2 mg/dL (Normal) UA - PROTEIN Negative mg/dL (Normal) UA - PH 7.0 (Normal) UA - BLOOD Negative (Normal) UA - SPECIFIC GRAVITY 1.010 (Normal) UA - KETONES Negative mg/dL (Normal) UA - BILIRUBIN Negative (Normal) UA - GLUCOSE Negative (Normal) 63-Xzv-935518:14 Throat Culture (08471) Comments: PATIENT NOT FASTINGPERFORMED BY: [address] [id number] Information: SRC:THRT ADD [id number] Result 1 RRF (Normal) Comments: Routine respiratory skylar Upper Respiratory Culture Final report (Normal) 05-Tbc-706598:14 Rapid Strep Test, Office (21184) Rapid Strep Test, Office Negative (Normal) 09-Zje-886059:38 Poliovirus Immune Status Comments: PATIENT NOT FASTINGPERFORMED BY: [address] [id number] BY: [place] [address] [facility] [id number] Poliovirus Type III >=1:8 (Normal) Comments: .This test was developed and its performance characteristics determinedby [employer]. It has not been cleared or approved by [facility]. Food and Drug Administration. The FDA has deter mined that s uchclearance or approval is not necessary. This test is used for clinicalpurposes. It should not be regarded as investigational or research. Poliovirus Type II <1:8 (Normal) Comments: .This test was developed and its performance characteristics determinedby [employer]. It has not been cleared or approved by [facility]. Food and Drug Administration. The FDA has deter mined that s uchclearance or approval is not necessary. This test is used for clinicalpurposes. It should not be regarded as investigational or research. Poliovirus Type I <1:8 (Normal) Comments: .This test was developed and its performance characteristics determinedby [employer]. It has not been cleared or approved by [facility] Food and Drug Administration. The FDA has deter mined that s uchclearance or approval is not necessary. This test is used for clinicalpurposes. It should not be regarded as investigational or research. 76-Uwv-042820:38 MUMPS ANTIBODY, IgG 08561 Comments: PATIENT NOT FASTINGPERFORMED BY: [place] [address] [facility] [id number] BY: [facility] [facility] [id number] (63472) Mumps Abs, IgG 1.56 {index} (Abnormal) Range: 0.00-0.90 Comments: Negative <0.91 Equivocal 0.91 - 1.09 Positive >1.09 Presence of antibodie s to Mumps is presumptive evidence of immunity except when active infection is suspected. 4-Iql-655233:59 THYROID Radiology Report See Note (Normal) Comments: [...] Sanchez M.D.September 14, 2012 at 4:08:36 PM [id number] lly Signed GP/GP If you are the referring physician and would like to consult with theradiologist who provided this interpretation, please contact [place] at [phone]. If this radiol ogist is unavailable, youwill be directed to another radiologist to assist. If you are a patient with a question regarding this report, pleasecontactyour referring physician directly. Professional Inter pretation Provided By: [employer], Phone , These documents contain legally protected [...] radiologist regarding this report, please call our [id number] line @ Dictated on 09/12/11 1233 by [...] radiologist regarding this report, please call our [id number] line @ Dictated on 09/12/11 1233 by Roman Gallagher DOribed on 09/12/11 1440 by ITS IMPORTSign by Jovanny Gallagher DO on 09/12/11 1441 Sign by: Conrad Gallagher DO CCP Antibodies 2 {units} (Normal) Comments: PATIENT NOT FASTINGPERFORMED BY: [employer] Eoddkk[address]98 [facility] [id number] BY: [address] [id number] 2:15 IgG/IgA Range: 0-19 Comments: Negative <20 Weak positive 20 - 39 Moderate positive 40 - 59 Strong positive >59 4-Wmr-323044:15 RHEUMATOID FACTOR-QUANT Comments: PATIENT NOT FASTINGPERFORMED BY: [employer] [facility] Vjyvap1615 [facility] [id number] BY: [employer] [id number] (91467) RA Latex Turbid. 7.4 {IU/mL} (Normal) Range: 0.0-13.9 1-Xwl-075848:15 CALCIFIDIOL (34143) VIT D Comments: PATIENT NOT FASTINGPERFORMED BY: [employer] [facility] Food Companyrp Tueezr3247 [facility] [id number] BY: [address] [id number] 25 Vitamin D, 25-Hydroxy 30.8 ng/mL (Normal) Range: 30.0-100.0 Comments: Vitamin D deficiency has been defined by the [place] ofMedicine and an Endocrine Society practice guideline as alevel of serum 25-OH vitamin D less than 20 ng/mL (1,2).The Endocrine Society went on to further define vitamin Dinsufficiency as a level between 21 and 29 ng/mL (2).1. IOM ([place] of Medicine). 2010. Dietary reference intakes for calcium and D. [place]: The National Academies Press.2. Nai MF, Jordan VELASCO, Pricila DONALD, et al. Evaluation, treatment, and prevention of vitamin D deficiency: an Endocrine Society clinical practice guideline. JCEM. 2010; 96(7):1911-30. 9-Clg-574532:15 Folate (74256) Comments: PATIENT NOT FASTINGPERFORMED BY: [facility] Cdtkoc6148 [facility] [place] [id number] BY: [address] [id number] Folate (Folic Acid), Serum >19.9 ng/mL (Normal) Comments: Indeterminate: 2.2 - 3.0 Deficient: <2.2 5-Vlp-343104:15 VITAMIN B-12 (CYANOCOBALAMIN) Comments: PATIENT NOT FASTINGPERFORMED BY: [facility] Xnqqpa2343 [facility] [id number] BY: [address] [id number] (58018) Vitamin B12 746 pg/mL (Normal) Range: 211-946 0-Qtp-568510:15 TSH (10122) Comments: PATIENT NOT FASTINGPERFORMED BY: [facility] Ajvprh4382 [facility] [id number] BY: [address] [id number] TSH 1.850 {uIU/mL} (Normal) Range: 0.450-4.500 5-Pxw-998777:15 SED RATE ERYTHROCYTE Comments: PATIENT NOT FASTINGPERFORMED BY: [facility] Sobnyc4590 [facility] [place] [id number] BY: [address] [id number] (85574) Sedimentation Rate-Westergren 19 mm/h (Normal) Range: 0-32 3-Guu-164119:15 METABOLIC PANEL, Comments: PATIENT NOT FASTINGPERFORMED BY: [facility] Rejvma4174 [address] [facility] [place] [id number] BY: [address] [id number] COMPREHENSIVE (21689) ALT (SGPT) 27 [iU]/L (Normal) Range: 0-40 [...] Glucose, Serum 87 mg/dL (Normal) Range: 65-99 4-Qwy-559583:15 C-REACTIVE PROTEIN (92526) Comments: PATIENT NOT FASTINGPERFORMED BY: coJuvoVirtua BerlinXsfzoh[address] [facility] [id number] BY: [address] [id number] C-Reactive Protein, Quant 14.1 mg/L (Abnormal) Range: 0.0-4.9 1-Rrp-856501:15 CBC (AUTO) (68439) Comments: PATIENT NOT FASTINGPERFORMED BY: coJuvoJohn [place] [address] [facility] [id number] BY: [employer] [address] [id number] Platelets 367 {x10E3/uL} (Normal) Range: 140-415 RDW 13.8 % (Normal) Range: 11.7-15.0 MCHC 33.2 g/dL (Normal) Range: 32.0-36.0 MCH 29.1 pg (Normal) Range: 27.0-34.0 MCV 88 fL (Normal) Range: 80-98 Hematocrit 39.7 % (Normal) Range: 34.0-44.0 Hemoglobin 13.2 g/dL (Normal) Range: 11.5-15.0 RBC 4.53 {x10E6/uL} (Normal) Range: 3.80-5.10 WBC 6.8 {x10E3/uL} (Normal) Range: 4.0-10.5 5-Feb-733758:15 PENNY (ANTINUCLEAR ANTIBODY) Comments: PATIENT NOT FASTINGPERFORMED BY: coJuvoVirtua BerlinLerlyi[address]20 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 exam On: 38-Gnt-207887:41 Request Anti-TPO Antibody (60224)Indication: Goiter On: :49 Request TSH (08301)Indication: Goiter On: :49 Request T4, FREE (THYROXINE) (34373)Indication: Goiter On: :49 Request T3, FREE (TRIDOTHYRONINE) (42396)Indication: Goiter On: :49 Request CCP ANTIBODY (49512)Indication: Pain in unspecified joint On: 4-Sst-539853:56 Request Planned Procedures Kenalog Injection, 10 mgm (J3301)By: On: 23-Jan-2018 Intent Ricarda Sher CNP Comments: 20mg Toradol Injection, 30 mg (J1885)By: On: 13-May-2016 Intent Kellen Adorno DO, DO, Comments: lot: [id number]:03/09/17site/route: ALONZO/ALMITAamt: 1mLVIS signed when applicableFAUSITNO Cooper MRI OF LUMBAR SPINE WITH AND WITHOUT On: 29-Apr-2016 Intent CONTRAST (71167)By: Ricarda Sher CNP Toradol Injection, 30 mg (J1885)By: On: 29-Apr-2016 Intent Ricarda Sher CNP Toradol Injection, 30 mg (J1885)By: On: 30-Dec-2013 Intent Mary Washington MD Eprescribed prescriptions (G8553)By: On: 21-Dec-2012 Intent Max LOZOYANEmilia L Ultrasound - ThyroidBy: Felix WATERS, On: 11-Sep-2012 Intent Mary Roe Eprescribed prescriptions (G8553)By: On: 11-Sep-2012 Intent Emilia Santana LPN Toradol Injection, 30 mg (J1885)By: On: 18-Jun-2012 Intent Mary Washington MD Radiology - Hip - BilateralBy: Faustino On: 12-Sep-2011 Kellen Licea DO, DO, Kathleen Planned Medications INJECTION, KETOROLAC TROMETHAMINE, [...] Instructions Indication: Migraine Encounters Office Visit On: 23-Jan-2018 7:51 Encounter Reason: [...] Impact of disease: no overall impact. Nutrition: End: 21-Dec-2008 8:44 lanced diet. The medical [...]
== END ==
PROVIDERS: Family Provider Internal Medicine; PCP Internal Medicine; Referring Provider Nurse Practitioner; Visit Provider Nurse Practitioner
DX: R10.9 Unspecified abdominal pain (principal); N39.0 Urinary tract infection, site not specified; R31.9 Hematuria, unspecified
CPT/HCPCS: 36415; 74176; 80069; 87086; 87088; 87186

== ENCOUNTER → 2019-01-12 10:02 | Outpatient (CLI) | payer BC, SELFPAY ==
--- NOTE | 2019-01-12 10:06 | RAD_ITS ---
STUDY: X-RAY - PELVIS AND BILATERAL HIPS REASON FOR EXAM: Female, 48 years old. Worsening pain TECHNIQUE: AP view of the pelvis.? 2 views of the right hip, and 2 views of the left hip were obtained. COMPARISON: None. FINDINGS: There is a non-specific bowel gas pattern. Normal visualized soft tissue structures. Normal bilateral iliac wings, sacroiliac joints and visualized sacrum. Normal bilateral superior and inferior pubic rami. Normal pubic symphysis. Normal bilateral ischial tuberosities. Normal visualized right femoral head. Normal right acetabulum. Normal right hip joint. Normal visualized left femoral head. Normal left acetabulum. Normal left hip joint. RAD/Hips B/L min 2 views w/ Pelvis IMPRESSION: Normal x-ray examination of the pelvis and bilateral hips. Electronically Signed: Abhijit Gonzalez MD at 16:47 EDT , Service support ,
== END ==
PROVIDERS: Family Provider Internal Medicine; PCP Internal Medicine; Referring Provider Nurse Practitioner; Visit Provider Nurse Practitioner
DX: M25.551 Pain in right hip (principal)
CPT/HCPCS: 73521

== ENCOUNTER → 2019-01-12 10:50 | Outpatient (CLI) | payer BC, SELFPAY ==
--- NOTE | 2019-01-12 10:57 | VDLE_ITS ---
Reason For Study: Calf pain Procedure LEFT Exam performed in department. GSV is normal. A preliminary report was called and/or faxed CFV is compressible, spontaneous, phasic, to Ciesa. competent, and demonstrates normal augmentation. FV is compressible, spontaneous, phasic, competent and demonstrates normal augmentation. POP V is compressible, spontaneous, phasic, competent and demonstrates normal augmentation. T/P Trunk is compressible. PTV is compressible. LT PerV is compressible. Interpretation Summary Deep veins of the left lower extremity are patent and compressible segmentally. There is no evidence of left lower extremity deep vein thrombosis. Valvular competence appears intact within the proximal deep venous system on the left . The left greater saphenous vein appears patent and compressible segmentally. Ordering Physician: Ricarda Sher Referring Physician: Kellen Harmon M.D. Performed By: Rachana Reeves RVT
== END ==
PROVIDERS: Family Provider Internal Medicine; PCP Internal Medicine; Referring Provider Nurse Practitioner; Visit Provider Nurse Practitioner
DX: M79.669 Pain in unspecified lower leg (principal)
CPT/HCPCS: 93971

== ENCOUNTER 2021-03-01 22:54 | Emergency (ER) | payer BC, SELFPAY ==
[2021-03-01 22:56] VITALS: BP 125/94; PULSE 90; RESP 18; TEMP 36; O2SAT 98; BMI 30.3
--- NOTE | 2021-03-01 23:08 | EX.ED.VIS.HA ---
HPI History of Present Illness Chief Complaint: Headache Informant: patient Onset/Context/Timing Onset: Today Context: Gradual Current Severity: Moderate Maximum Severity: Moderate Narrative Narrative: Patient presents secondary to headache. Patient was diagnosed with Covid on February 23 after developing symptoms that same day. She received her first dose of the Pfizer vaccine on the eighth became symptomatic on the . Patient continues to have cough which is just now becoming productive of sputum. She has had fevers at night. She complains of headache that was worsened today. She has taken Tylenol and ibuprofen without significant improvement. She does have light sensitivity and nausea. PFSH PFSH Medical History Rheumatoid arthritis Medical History no medical history Home Medications folic acid 1 mg PO DAILY 03/01/21 [History Last Taken Unknown] hydroxychloroquine 200 mg PO DAILY 03/01/21 [History Last Taken Unknown] methotrexate sodium (PF) 50 mg IM QWEEK 03/01/21 [History Last Taken Unknown] spironolactone 60 mg PO DAILY 03/01/21 [History Last Taken Unknown] Allergy/AdvReac Type Severity Reaction Status Date / Time Penicillins Allergy Hives Verified 03/01/21 22:55 tramadol Allergy Hives Verified 03/01/21 22:55 Surgical History Hx of cholecystectomy Social History Smoking Status: Never smoker ROS ROS ED Constitutional Constitutional ED: Reports fever(s); Denies chills Eyes Eyes: Denies change in vision ENT ENT ED: Reports other Details: Congestion ; Denies sore throat Cardiovascular Cardiovascular: Denies chest pain Respiratory/Chest Respiratory/Chest: Reports cough and dyspnea Gastrointestinal Gastrointestinal: Reports diarrhea, nausea and vomiting; Denies abdominal pain Musculoskeletal Musculoskeletal: Denies back pain Integumentary Denies rash Neurologic Neurologic: Reports headache(s); Denies weakness Psychiatric Psychiatric: Denies anxiety or depression Allergic/Immunologic Allergic/Immunologic ED: Denies urticaria EXAM Physical Exam Const Vital Signs: 03/01/21 22:56 Temperature 96.8 F L Temperature Source Temporal Pulse Rate 90 Respiratory Rate 18 Blood Pressure 125/94 H Blood Pressure Mean 104 Pulse Ox 98 Oxygen Delivery Method Room Air MDM MDM MDM Narrative Medical decision making narrative: Patient was given Toradol, Reglan, Benadryl, 500 cc IV fluid bolus. Treatment and Re-Evaluation Comments:: On repeat evaluation patient reports headache is much improved. Repeat exam shows normal neuro findings with no meningismus. Supportive care as discussed. Discharge Plan Triage Chief Complaint: Headache ED Provider: Jeni Tapia Dx/Rx/DC Orders Clinical Impression: Headache, COVID-19 Instructions: Coronavirus Disease 2019 (COVID-19): Caring for Yourself or Others Prescriptions: No Action folic acid 1 mg tablet 1 mg PO DAILY RF: 0 hydroxychloroquine 200 mg tablet 200 mg PO DAILY RF: 0 spironolactone 50 mg tablet 60 mg PO DAILY RF: 0 methotrexate sodium (PF) 25 mg/mL solution 50 mg IM QWEEK RF: 0 Primary Care Provider: Kellen Harmon Referrals: Kellen Harmon DO [Primary Care Provider] - 1-2 Weeks Disposition Disposition: Home, Self Care
[2021-03-01] MEDS: Metoclopramide 10 MG/2 ML Vial IV (23:53)
[2021-03-01] MEDS: DiphenhydrAMINE 50 MG/ML Syringe 25 MG IV (23:56)
[2021-03-01] MEDS: Ketorolac 30 MG/ML Syringe IV (23:57)
[2021-03-02 01:11] VITALS: BP 118/76; PULSE 68; RESP 12; O2SAT 94
== END 2021-03-02 01:11 | disposition home or self-care (01) ==
PROVIDERS: Emergency Provider Emergency Medicine; PCP Internal Medicine
DX: U07.1 COVID-19 (principal); R51.9 Headache, unspecified; M06.9 Rheumatoid arthritis, unspecified; Z90.49 Acquired absence of other specified parts of digestive tract; Z79.899 Other long term (current) drug therapy
CPT/HCPCS: 96361; 96374; 96375; 99283; J7030; A4216

== ENCOUNTER 2021-03-04 09:00 | Emergency (ER) | payer BC, SELFPAY ==
[2021-03-04 09:01] VITALS: BP 125/84; PULSE 108; RESP 16; TEMP 38; O2SAT 95; BMI 29.8
[2021-03-04 09:12] VITALS: O2SAT 95
--- NOTE | 2021-03-04 09:25 | RAD_ITS ---
STUDY: X-RAY CHEST REASON FOR EXAM: Female, 50 years old. cough TECHNIQUE: Single AP portable view of the chest. COMPARISON: None. FINDINGS: Patchy alveolar opacities in both lungs consistent with bilateral pneumonia. There is no demonstrated pleural abnormality. Normal size heart. Normal mediastinum and see. Normal visualized pulmonary arteries. Normal visualized aortic arch and descending thoracic aorta. Normal visualized thoracic spine. Normal visualized ribs, clavicles, and shoulders. There is no demonstrated abnormality of the visualized soft tissue structures of the upper abdomen. RAD/Chest 1 View (Portable) IMPRESSION: Bilateral patchy pneumonia. Electronically Signed: Jomar Goetz MD at 10:31 EDT Tel , Service support ,
--- NOTE | 2021-03-04 09:25 | EKG12_ITS ---
Test Reason : Blood Pressure : / mmHG Vent. Rate : 098 BPM Atrial Rate : 098 BPM P-R Int : 122 ms QRS Dur : 088 ms QT Int : 358 ms P-R-T Axes : 066 021 029 degrees QTc Int : 457 ms Normal sinus rhythm Normal ECG Confirmed by RIVERA UNDERWOOD MD ([id number]), editorial specialist KIMMY FREITAS ([id number]) on 03/07/2021 9:54:54 AM Referred By: ELVIS Confirmed By:RIVERA UNDERWOOD MD
[2021-03-04 09:38] LABS: Absolute Lymphocyte Count 0.41 X10^3/uL (0.83-4.51); Absolute Neutrophil Count 3.8 X10^3/uL (2.0-7.7); Hematocrit 39.4 % (37-47); Hemoglobin 13.8 g/dL (12.0-15.0); Lymphocyte # 0.41 X10^3/ul (0.83-4.51); Lymphocyte % 9.2 % (19-41); Mean Corpuscular Hgb 31.4 pg (27.0-32.0); Mean Corpuscular Volume 89.7 fL (81-99); Mean Platelet Vol. 9.5 fl (6.2-12.0); Monocyte# 0.19 X10^3/uL; Monocyte% 4.3 % (0-10); NRBC Flagged by Analyzer 0 % (0-5); Neutrophil % 85.6 % (47-70); POSITIVE DIFFERENTIAL YES; POSITIVE MORPHOLOGY YES; Platelet Count 151 K/mm3 (150-450); RBC Distribution Width CV 13.1 % (11.6-14.6); RBC Distribution Width SD 42.5 fl (35.1-43.9); Red Blood Count 4.39 M/mm3 (4.2-5.4); White Blood Count 4.4 K/mm3 (4.4-11.0)
[2021-03-04 09:39] LABS: Differential Indicated SCAN CRITERIA MET
[2021-03-04] MEDS: dexAMETHasone 10 MG/ML Vial IV (09:47)
[2021-03-04] MEDS: 0.9% Normal Saline 1,000 ML 999 ML IV (09:47)
[2021-03-04] MEDS: Ondansetron 4 MG/2 ML Vial IV (09:47)
[2021-03-04 09:51] LABS: Anion Gap 10 (5-15); BUN 6 mg/dL (7-18); Calcium,Total 8.3 mg/dL (8.5-10.1); Chloride 97 mmol/L (98-107); EST Glomerular Filtration Rate 114 mL/min (>60); Est Glom Filt Rate - Afr Amer 138 mL/min (>60); Estimated Creatinine Clearance 107.34 ml/min; Glucose 108 mg/dL (74-106); Magnesium 2.2 mg/dL (1.6-2.6); Sodium Level 132 mmol/L (136-145)
[2021-03-04 11:14] VITALS: BP 134/80; PULSE 104; RESP 30; O2SAT 96
--- NOTE | 2021-03-04 11:47 | ED.VIS.DYS ---
HPI History of Present Illness Chief Complaint: Shortness of Breath Narrative Narrative: Patient is a 50-year-old female with history of rheumatoid arthritis who takes methotrexate daily. She states that she and her were diagnosed with Covid 9 days ago. She states that over the past 2 to 3 days she has had increased congestion cough and shortness of breath sensation. She denies any need for supplemental oxygen or history of lung disease. She states that with her worsening symptoms she is concerned that she may need admitted and therefore comes in for evaluation PFSH PFS Medical History Rheumatoid arthritis Home Medications folic acid 1 mg PO DAILY 03/01/21 [History Last Taken Unknown] hydroxychloroquine 200 mg PO DAILY 03/01/21 [History Last Taken Unknown] methotrexate sodium (PF) 50 mg IM MOSER 03/01/21 [History Last Taken Unknown] spironolactone 60 mg PO DAILY 03/01/21 [History Last Taken Unknown] dexamethasone [Decadron] 6 mg PO DAILY #10 tab 03/04/21 [Rx Last Taken Unknown] promethazine-codeine 5 ml PO Q6H PRN #140 ml 03/04/21 [Rx Last Taken Unknown] Allergy/AdvReac Type Severity Reaction Status Date / Time Penicillins Allergy Hives Verified 03/01/21 22:55 tramadol Allergy Hives Verified 03/01/21 22:55 Surgical History Hx of cholecystectomy Social History Smoking Status: Never smoker [facility] ED Constitutional Constitutional ED: Denies chills or fever(s) ENT ENT ED: Reports rhinorrhea and sore throat Cardiovascular Cardiovascular: Denies chest pain Respiratory/Chest Respiratory/Chest: Reports cough and dyspnea Gastrointestinal Gastrointestinal: Reports diarrhea, nausea and vomiting; Denies abdominal pain Genitourinary Genitourinary ED: Denies dysuria Musculoskeletal Musculoskeletal: Reports myalgias Integumentary Denies rash Neurologic Neurologic: Reports headache(s) Hematologic/Lymphatic Hematologic/Lymphatic: Denies easy bleeding or easy bruising EXAM Physical Exam Const Vital Signs: 03/04/21 09:01 03/04/21 09:12 03/04/21 11:14 Temperature 100.4 F H Temperature Source Temporal Pulse Rate 108 H 104 H Respiratory Rate 16 30 H Respiratory Effort Normal Non-Labored Short of Breath Respiratory Depth Normal Respiratory Pattern Normal Blood Pressure 125/84 H 134/80 H Blood Pressure Mean 97 98 Pulse Ox 95 96 Oxygen Delivery Method Room Air Room Air Room Air Positive well nourished and well developed General Appearance ED: well developed HEENT Reports moist mucous membranes HEENT Narrative: No tongue or lip swelling no oral lesions no airway edema or compromise. There is cobblestoning the posterior pharynx consistent with sinus drainage Eyes PERRL and EOMs intact bilaterally Neck supple, no meningeal signs and no JVD Neck Narrative: Positive anterior cervical lymphadenopathy Resp Resp Narrative: Breath sounds are diminished throughout with slight tachypnea and there is some diffuse wheezing with faint rhonchi in the bilateral bases Cardio regular rate and regular rhythm Cardio Narrative: Radial pulses are plus 2 out of 4 bilaterally are equal and symmetric GI non-tender and non-distended GI Narrative: Bowel sounds are hyperactive Palpation: soft Extremity normal to inspection Neuro oriented x3 and CN's II-XII intact bilaterally Sensorium / Orientation: alert Psych mental status grossly normal Skin no rashes or lesions noted Lesions: no lesions Rashes: no rashes MDM MDM MDM Narrative Medical decision making narrative: Patient presented to the ER afebrile and satting 95 to 97% on room air. Her history and exam is consistent with worsening inflammatory changes from Covid. A chest x-ray was obtained which does show Covid pneumonia. However patient was ambulated and she had no desaturation with this. She also has no signs of ischemia on her EKG. therefore at this time as she does not have hypoxia with ambulation or at rest there is no need for admission and she can be discharged home. As she does have history of immunosuppression and is 9 days into her Covid symptoms and not requiring supplemental oxygen she does qualify for monoclonal antibody therapy and will be treated for this at this time Lab Data Attestation: I reviewed the patient's lab results. Labs: Laboratory Results - last 24 hr 03/04/21 03/04/21 09:30 09:30 WBC 4.4 RBC 4.39 Hgb 13.8 Hct 39.4 MCV 89.7 MCH 31.4 MCHC 35.0 RDW Std Deviation 42.5 RDW Coeff of Young 13.1 Plt Count 151 MPV 9.5 Immature Gran % (Auto) 0.900 Neut % (Auto) 85.6 H Lymph % (Auto) 9.2 L [place] % (Auto) 4.3 Eos % (Auto) 0.0 Baso % (Auto) 0.0 Absolute Neuts (auto) 3.8 Absolute Lymphs (auto) 0.41 L Nucleated RBC % 0 Sodium 132 L Potassium 4.0 Chloride 97 L Carbon Dioxide 25.0 Anion Gap 10 BUN 6 L Creatinine 0.60 Estim Creat Clear Calc 107.34 Est GFR (MDRD) Af Amer 138 Est GFR (MDRD) Non-Af 114 BUN/Creatinine Ratio 10.0 Glucose 108 H Calcium 8.3 L Magnesium 2.2 Radiography Diagnostic Testing: Radiology Impression Chest X-Ray 03/04/21 09:25 IMPRESSION: Bilateral patchy pneumonia. Electronically Signed: Jomar Goetz MD at 10:31 EDT Tel , Service support , Discharge Plan Triage Chief Complaint: Shortness of Breath ED Provider: Nura Marmolejo Dx/Rx/DC Orders Clinical Impression: Pneumonia due to 2019 novel coronavirus Instructions: ED - COVID Monoclonal AB Infusion ... Prescriptions: New dexamethasone [Decadron] 6 mg tablet 6 mg PO DAILY Qty: 10 RF: 0 promethazine-codeine 6.25-10 mg/5 mL syrup 5 ml PO Q6H PRN (Reason: cough) Qty: 140 RF: 0 No Action folic acid 1 mg tablet 1 mg PO DAILY RF: 0 hydroxychloroquine 200 mg tablet 200 mg PO DAILY RF: 0 spironolactone 50 mg tablet 60 mg PO DAILY RF: 0 methotrexate sodium (PF) 25 mg/mL solution 50 mg IM MOSER RF: 0 Other Ambulatory Orders: COVID Outpatient Monoclonal Antibody Referral (Routine) Timeframe: 1 Day Facility: [facility] - Location: [facility] [place] Ordered By: Dr. Nura Marmolejo Primary Care Provider: Kellen Harmon Referrals: Kellen Harmon DO [Primary Care Provider] - Disposition Disposition: Home, Self Care
[2021-03-04 12:08] VITALS: BP 137/79; PULSE 101; RESP 28; O2SAT 95
== END 2021-03-04 12:09 | disposition home or self-care (01) ==
PROVIDERS: Emergency Provider Emergency Medicine; PCP Internal Medicine
DX: U07.1 COVID-19 (principal); J12.82 Pneumonia due to coronavirus disease 2019; M06.9 Rheumatoid arthritis, unspecified; Z79.52 Long term (current) use of systemic steroids; Z90.49 Acquired absence of other specified parts of digestive tract
CPT/HCPCS: 71045; 80048; 83735; 85025; 93005; 96361; 96374; 96375; 99283; J7030; J2405